=== PATIENT | female | born 1940 | race Caucasian/White ===

== ENCOUNTER 2016-11-01 17:16 | Inpatient (IN) ==
[2016-11-01] MEDS ORDERED: 0.9 % Sodium Chloride 500 ML IV ONE (17:37)
[2016-11-01] MEDS ORDERED: *HR* Morphine 2 MG/ML SYRINGE IV ONE (17:37)
[2016-11-01 17:45] LABS: Basophils % 0.2 %; Hematocrit 35.2 % (35.3-44.9); Hemoglobin 10.8 g/dL (11.5-15.4); Immature Granulocytes % 0.2 % (0-4); Lymphocytes # 0.9 K/mcL (0.6-4.6); Lymphocytes % 11.3 %; Mean Corpuscular HGB Conc 30.7 g/dL (31.6-35.5); Mean Corpuscular Volume 81.5 fL (83.0-100.0); Mean Platelet Volume 9.7 fL (9.4-12.4); Monocytes # 0.4 K/mcL (0.0-1.3); Neutrophils # 6.8 K/mcL (1.6-8.9); Platelet Count 183 K/mcL (140-400); Red Blood Count 4.32 M/mcL (3.82-4.97); Red Cell Distribution Width 15.9 % (11.5-14.5); Segmented Neutrophils % 83.3 %
[2016-11-01 17:49] LABS: Prothrombin Time 11.2 Seconds (9.4-12.1)
[2016-11-01 17:52] LABS: Activated Partial Thrombo Time 30.9 Seconds (26.0-36.0)
[2016-11-01 18:00] LABS: Alanine Aminotransferase 19 Units/L (0-55); Albumin 3.4 g/dL (3.5-5.0); Albumin/Globulin Ratio 1.2 (1.1-2.2); Alkaline Phosphatase 126 Units/L (38-126); Aspartate Amino Transferase 22 Units/L (5-34); BUN/Creatinine Ratio 21 (6-26); Bilirubin,Total 0.4 mg/dL (0.2-1.2); Blood Urea Nitrogen 16 mg/dL (7-20); Calcium 8.4 mg/dL (8.6-10.8); Carbon Dioxide 18 mEq/L (19-29); Chloride 107 mEq/L (98-109); Globulin 2.8 g/dL (2.4-3.5); Glucose 103 mg/dL (70-99); Osmolality,Calculated 285 (280-300); Potassium 4.3 mEq/L (3.5-4.5); Sodium 137 mEq/L (136-145); Total Protein 6.2 g/dL (6.0-8.3); eGFR For African Americans > 60 (> 60); eGFR For Non-African Americans > 60 (> 60)
--- NOTE | 2016-11-01 18:28 | Emergency Department Note ---
Disposition Clinical Impression: Closed left hip fracture Qualifiers: Encounter type: initial encounter Qualified Code(s): S72.002A - Fracture of unspecified part of neck of left femur, initial encounter for closed fracture Disposition: Admitted As Inpatient Condition: Good Referrals: King Winter MD [Primary Care Provider] - Forms: ED Satisfaction Letter Fall HPI - General Chief Complaint: ED Fall Stated Complaint: Fall / Possible Hip Fx Time Seen by Provider: 11/01/16 17:21 Source: patient Nursing Notes Reviewed: Yes Vital Signs Reviewed: Yes - History of Present Illness HPI Narrative: Patient presents with complaint of left hip pain status post fall. Patient states she was in kitchen had a slip and fall. Patient states injury happened last night. She had been using a walker to get around but comes in today because of increased pain. Of note patient had a hip fracture August 2015 and required intervention. Patient denies numbness and tingling this complains of pain. Patient denies any other areas of injury. Patient denies shortness of breath or cough. Patient denies dizziness associated. - Related Data Home Medications Medication Instructions Recorded Confirmed Fluconazole [Diflucan] 150 mg PO QWEEK 09/03/15 09/03/15 Gabapentin [Neurontin] 100 mg PO QAM 09/03/15 09/03/15 Gabapentin [Neurontin] 300 mg PO HS 09/03/15 09/03/15 Imodium 6 mg PO TID 09/03/15 09/03/15 Previous Rx's Medication Instructions Recorded Aspirin Enteric Coated [Aspirin EC] 325 mg PO BID #60 tablet. 09/04/15 Hydrocodone/Acetaminophen [[place] 1 - 2 tab PO Q4H PRN #90 tab 09/04/15 5-325 Tablet] Alprazolam [Xanax 0.5 MG Tablet] 0.5 mg PO BID 30 Days 09/06/15 FLUoxetine HCl [Prozac] 20 mg PO HS 30 Days 09/06/15 FLUoxetine HCl [Prozac] 40 mg PO QAM 30 Days 09/06/15 Primidone [Mysoline] 50 mg PO BID 30 Days 09/06/15 Ropinirole HCl [Requip] 2 - 4 mg PO DAILY PRN #30 tablet 09/06/15 Ropinirole [Requip] 3 - 6 mg PO HS #45 tablet 09/06/15 Allergies Allergy/AdvReac Type Severity Reaction Status Date / Time No Known Allergies Allergy Verified 09/03/15 16:21 All systems ED: reviewed and negative except as stated. Fall PMH - Past Medical History Medical history: Reports: other Surgical history: Reports: knee replacement Psychiatric history: Reports: anxiety, depression - Social History Smoking Status: Never smoker Alcohol use: Reports: none Drug use: Reports: none Physical Exam - General Limitations: no limitations General appearance: alert - Head Head exam: atraumatic, normocephalic, normal inspection - Eye Eye exam: Present: normal appearance, PERRL, EOMI - ENT ENT exam: normal exam, normal oropharynx, mucous membranes moist - Neck Neck exam: Present: normal inspection, full ROM, trachea midline - Chest Chest inspection: Present: normal inspection, symmetric chest wall rise - Respiratory Respiratory exam: Present: normal lung sounds bilaterally - Cardiovascular Cardiovascular exam: Present: regular rate, normal rhythm, normal heart sounds - Abdominal Exam Abdominal exam: Present: soft, Non-Tender. Absent: tenderness, distention, guarding, rebound, rigidity - Extremities Exam Extremities exam: Present: tenderness (Left lateral hip tenderness to palpation. Range of motion limited secondary to pain) - Back Exam Back exam: Present: normal inspection, full ROM. Absent: tenderness - Neurological Exam Neurological exam: Present: alert, oriented X3 - Psychiatric Psychiatric exam: Present: normal affect, normal mood - Skin Skin exam: Present: warm, dry, intact, normal color Course - Consultations Consultation #1: Dr Silva Vital Signs Temperature 99.7 F H 11/01/16 17:18 Pulse Rate 82 11/01/16 17:18 Respiratory Rate 16 11/01/16 17:18 Blood Pressure 163/72 11/01/16 17:18 O2 Sat by Pulse Oximetry 97 11/01/16 17:18 Temperature 99.7 F H 11/01/16 17:18 Pulse Rate 82 11/01/16 17:18 Respiratory Rate 16 11/01/16 17:18 Blood Pressure 163/72 11/01/16 17:18 O2 Sat by Pulse Oximetry 97 11/01/16 17:18 Oxygen Delivery Oxygen Delivery Room Air Fall - Differential Diagnosis Likely: syncope, seizure - Lab Data Lab results reviewed: Yes I reviewed the patient's lab results. Result diagrams: 11/01/16 17:34 11/01/16 17:34 Lab Results 11/01/16 11/01/16 11/01/16 Range/Units 17:34 17:34 17:34 WBC 8.1 (4.3-11.1) K/mcL RBC 4.32 (3.82-4.97) M/mcL Hgb 10.8 L (11.5-15.4) g/dL Hct 35.2 L (35.3-44.9) % MCV 81.5 L (83.0-100.0) fL MCH 25.0 L (28.0-33.3) pg MCHC 30.7 L (31.6-35.5) g/dL RDW 15.9 H (11.5-14.5) % Plt Count 183 (140-400) K/mcL MPV 9.7 (9.4-12.4) fL Immature Gran % 0.2 (0-4) % Seg Neutrophils % 83.3 % Lymphocytes % 11.3 % Monocytes % 5.0 % Eosinophils % 0.0 % Basophils % 0.2 % Neutrophils # 6.8 (1.6-8.9) K/mcL Lymphocytes # 0.9 (0.6-4.6) K/mcL Monocytes # 0.4 (0.0-1.3) K/mcL Eosinophils # 0.0 (0.0-0.6) K/mcL Basophils # 0.0 (0.0-0.2) K/mcL PT 11.2 (9.4-12.1) Seconds INR 1.0 APTT 30.9 (26.0-36.0) Seconds Sodium 137 (136-145) mEq/L Potassium 4.3 (3.5-4.5) mEq/L Chloride 107 (98-109) mEq/L Carbon Dioxide 18 L (19-29) mEq/L BUN 16 (7-20) mg/dL Creatinine 0.78 (0.57-1.11) mg/dL Est GFR ( Amer) > 60 (> 60) Est GFR (Non-Af Amer) > 60 (> 60) BUN/Creatinine Ratio 21 (6-26) Glucose 103 H (70-99) mg/dL Calculated Osmolality 285 (280-300) Calcium 8.4 L (8.6-10.8) mg/dL Total Bilirubin 0.4 (0.2-1.2) mg/dL AST 22 (5-34) Units/L ALT 19 (0-55) Units/L Alkaline Phosphatase 126 (38-126) Units/L Troponin I (0-0.03) ng/mL Serum Total Protein 6.2 (6.0-8.3) g/dL Albumin 3.4 L (3.5-5.0) g/dL Globulin 2.8 (2.4-3.5) g/dL Albumin/Globulin Ratio 1.2 (1.1-2.2) 11/01/16 Range/Units 17:34 WBC (4.3-11.1) K/mcL RBC (3.82-4.97) M/mcL Hgb (11.5-15.4) g/dL Hct (35.3-44.9) % MCV (83.0-100.0) fL MCH (28.0-33.3) pg MCHC (31.6-35.5) g/dL RDW (11.5-14.5) % Plt Count (140-400) K/mcL MPV (9.4-12.4) fL Immature Gran % (0-4) % Seg Neutrophils % % Lymphocytes % % Monocytes % % Eosinophils % % Basophils % % Neutrophils # (1.6-8.9) K/mcL Lymphocytes # (0.6-4.6) K/mcL Monocytes # (0.0-1.3) K/mcL Eosinophils # (0.0-0.6) K/mcL Basophils # (0.0-0.2) K/mcL PT (9.4-12.1) Seconds INR APTT (26.0-36.0) Seconds Sodium (136-145) mEq/L Potassium (3.5-4.5) mEq/L Chloride (98-109) mEq/L Carbon Dioxide (19-29) mEq/L BUN (7-20) mg/dL Creatinine (0.57-1.11) mg/dL Est GFR ( Amer) (> 60) Est GFR (Non-Af Amer) (> 60) BUN/Creatinine Ratio (6-26) Glucose (70-99) mg/dL Calculated Osmolality (280-300) Calcium (8.6-10.8) mg/dL Total Bilirubin (0.2-1.2) mg/dL AST (5-34) Units/L ALT (0-55) Units/L Alkaline Phosphatase (38-126) Units/L Troponin I 0.00 (0-0.03) ng/mL Serum Total Protein (6.0-8.3) g/dL Albumin (3.5-5.0) g/dL Globulin (2.4-3.5) g/dL Albumin/Globulin Ratio (1.1-2.2) - Radiology Data Radiology results reviewed: Yes I reviewed the patient's radiology results. Chest X-Ray 11/01/16 17:24 IMPRESSION: No acute cardiopulmonary disease. Closed impacted nondisplaced left femoral subcapital fracture. Sequela of remote ORIF for right femoral subcapital fracture. D/ : / 11/01/2016 18:19:08 Ash Tyler MD / jacinta Interpreting Provider: Ash Tyler MD Hip X-Ray 11/01/16 17:25 IMPRESSION: No acute cardiopulmonary disease. Closed impacted nondisplaced left femoral subcapital fracture. Sequela of remote ORIF for right femoral subcapital fracture. D/ : / 11/01/2016 18:19:08 Ash Tyler MD / jacinta Interpreting Provider: Ash Tyler MD - EKG Data EKG results narrative: EKG is unchanged from previous EKG shows normal: sinus rhythm Rate: normal Rhythm: NSR
[2016-11-01] MEDS ORDERED: *HR* HYDROcodone/Acet 5/325 mg TABLET PO PRN (20:55)
[2016-11-01] MEDS ORDERED: *HR* HYDROmorphone (PF) 1 MG/ML SYRINGE IVP PRN (20:56)
--- NOTE | 2016-11-01 21:06 | Orthopedic Consult Note ---
Date of Encounter: 11/01/16 Time of Encounter: 21:02 History of Present Illness Chief complaint: Left hip pain HPI: Ms. 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 She presented to the emergency room where x-rays taken revealed evidence of a left hip fracture. She is admitted for further management of management. She does have a history of having sustained a right hip fracture in August 2015. She also has orthopedic history of bilateral total knee replacements. The complete history and physical data please refer to the completed portion of the medical record. Orthopedic examination reveals a pleasant 76 [place] in mild distress secondary to left hip pain. No obvious shortening or external rotation. I have not attempted to thoroughly examine the hip as she has a known hip fracture. X- rays are reviewed and reveals a minimally of varus aligned subcapital femoral neck fracture. There is evidence of a healed right subcapital femoral neck fracture with 3 cannulated hip screws present. Impression: Nondisplaced left femoral neck fracture Recommendation: Discussed with the patient that I think that the best option for her to be to proceed with a similar procedure she had on the right side. This would be a percutaneous annulated hip screw fixation. This would stabilize the fracture and hopefully allow her to heal the fracture uneventfully and time. She understands this is a relatively minor procedure in comparison to a much more involved hemiarthroplasty which would be the other surgical option. Patient had previously had successful right cannulated hip screw fixation and endured a short period of limited weightbearing without problems and she feels she is quite capable of doing this again. We discussed surgical procedure as well as the potential risks and complications including but not limited to bleeding infection blood clots nerve injury stiffness malunion nonunion and avascular necrosis of the hip. She understands and agrees and a signed informed consent for the surgery. We will schedule her for surgery tomorrow when operating time is available. Preoperative orders have been written. Thank you very much for allowing me to see and care for Mrs. Hopson. Sincerely , Valdez Silva,DO Past Med Surg Social Fam HX - Past Medical History Medical history: other Psychiatric history: anxiety, depression - Past Surgical History Surgical History: knee replacement - Social History Smoking Status: Never smoker Smokeless Tobacco Status: No Alcohol use: none Drug use: none Medications and Allergies Fluconazole [Diflucan] 150 mg PO QWEEK 09/03/15 [History] Gabapentin [Neurontin] 100 mg PO QAM 09/03/15 [History] Gabapentin [Neurontin] 300 mg PO HS 09/03/15 [History] Imodium 6 mg PO TID 09/03/15 [History] Alprazolam [Xanax 0.5 MG Tablet] 0.5 mg PO BID 30 Days 09/06/15 [Rx] FLUoxetine HCl [Prozac] 20 mg PO HS 30 Days 09/06/15 [Rx] FLUoxetine HCl [Prozac] 40 mg PO QAM 30 Days 09/06/15 [Rx] Primidone [Mysoline] 50 mg PO BID 30 Days 09/06/15 [Rx] Aspirin Enteric Coated [Aspirin EC] 325 mg PO BID PRN 11/01/16 [History] Hydrocodone/Acetaminophen [[place] 5-325 Tablet] 1 tab PO Q4H PRN 11/01/16 [ History] Ropinirole HCl [Requip] 2 mg PO DAILY PRN 11/01/16 [History] Ropinirole [Requip] 6 mg PO HS 11/01/16 [History] Allergies No Known Allergies Allergy (Verified 09/03/15 16:21) All Systems Reviewed: A 10-system review of systems was performed and is negative for pertinent findings except as documented above in the HPI. Physical Exam - Constitutional Vitals: Temp Pulse Resp BP Pulse Ox 98.5 F 82 15 151/78 94 L 11/01/16 20:26 11/01/16 20:26 11/01/16 20:26 11/01/16 20:26 11/01/16 20:26 Results - Labs Result Diagrams: 11/01/16 17:34 11/01/16 17:34 Labs: Abnormal lab results Hgb 10.8 g/dL (11.5-15.4) L 11/01/16 17:34 Hct 35.2 % (35.3-44.9) L 11/01/16 17:34 MCV 81.5 fL (83.0-100.0) L 11/01/16 17:34 MCH 25.0 pg (28.0-33.3) L 11/01/16 17:34 MCHC 30.7 g/dL (31.6-35.5) L 11/01/16 17:34 RDW 15.9 % (11.5-14.5) H 11/01/16 17:34 Carbon Dioxide 18 mEq/L (19-29) L 11/01/16 17:34 Glucose 103 mg/dL (70-99) H 11/01/16 17:34 Calcium 8.4 mg/dL (8.6-10.8) L 11/01/16 17:34 Albumin 3.4 g/dL (3.5-5.0) L 11/01/16 17:34 All other labs normal. Consult Discharge Plan - Plan Referrals: King Winter MD [Primary Care Provider] -
[2016-11-01] MEDS ORDERED: Acetaminophen 325 MG TABLET PO PRN (23:19)
[2016-11-01] MEDS ORDERED: *HR* OxyCODONE Immed Rel 5 MG TABLET PO PRN (23:19)
[2016-11-01] MEDS ORDERED: Ondansetron 4 MG/2 ML VIAL IVP PRN (23:19)
[2016-11-01] MEDS ORDERED: Pantoprazole 40 MG VIAL IVP STA (23:19)
[2016-11-01] MEDS ORDERED: Naloxone 0.4 MG/ML INJ IVP PRN (23:19)
[2016-11-01] MEDS ORDERED: 0.9 % Sodium Chloride 1,000 ML IVC SCH (23:30)
[2016-11-01] MEDS ORDERED: rOPINIRole 1 MG TABLET PO PRN (23:32)
--- NOTE | 2016-11-01 23:37 | Internal Med History&Physical ---
Date of Encounter: 11/01/16 Time of Encounter: 23:00 Assessment and Plan (1) Multiple falls Current visit: Yes Status: Acute . (2) Closed subcapital fracture of left femur Current visit: Yes Status: Acute . Qualifiers: Encounter type: initial encounter Qualified Code(s): S72.012A - Unspecified intracapsular fracture of left femur, initial encounter for closed fracture (3) Metabolic acidosis Current visit: Yes Status: Acute . (4) Hypoalbuminemia due to protein-calorie malnutrition Current visit: Yes Status: Chronic . (5) Hypocalcemia Current visit: Yes Status: Acute . (6) Iron deficiency Current visit: Yes Status: Acute . (7) Microcytic hypochromic anemia Current visit: Yes Status: Acute . (8) Fever Current visit: Yes Status: Acute . Qualifiers: Fever type: unspecified Qualified Code(s): R50.9 - Fever, unspecified (9) Reactive hypertension Current visit: Yes Status: Acute . (10) Essential tremor Current visit: Yes Status: Chronic . (11) Irritable bowel syndrome (IBS) Current visit: Yes Status: Chronic . Qualifiers: Irritable bowel syndrome type: with diarrhea Qualified Code(s): K58.0 - Irritable bowel syndrome with diarrhea (12) Anxiety associated with depression Current visit: Yes Status: Chronic . (13) Osteoarthritis involving multiple joints on both sides of body Current visit: Yes Status: Chronic . (14) Degenerative disc disease Current visit: Yes Status: Chronic . Qualifiers: Spinal region: lumbar Qualified Code(s): M51.36 - Other intervertebral disc degeneration, lumbar region (15) Osteoporosis Current visit: Yes Status: Chronic . (16) Left bundle branch block (LBBB) on electrocardiogram Current visit: Yes Status: Chronic . (17) Diastolic heart failure of unknown etiology Current visit: Yes Status: Chronic . (18) Restless leg syndrome Current visit: Yes Status: Chronic . Internal Medicine - H&P: HPI Chief complaint: Fall with left hip injury. Admitted From: Emergency Dept Plans for Post Hospital Care: Home History of present illness: Ms. Hopson is a 76 year old female with history significant of frequent mechanical falls, osteoarthritis, osteopenia, degenerative disc disease lumbar spine, frequent yeast infections, essential tremor, irritable bowel syndrome with diarrhea, restless leg syndrome, left bundle-branch block-left axis deviation age indeterminate, diastolic heart failure/LVEF 60-65%, generalized anxiety disorder-depression/?bipolar, nonsmoker The patient was visited and interviewed and examined. The patient presents with complaint of left hip plain status post mechanical fall. She is admitted to [facility] via the Emergency Department for further assessment and disposition. She had been standing in her kitchen and simply slipped and fell. This occurring the night before her ER presentation. She had been using a walker to get around on her fall presented that due to increasing pain and weightbearing and addressed. The patient carries a history of multiple falls. She hss also sustained musculoskeletal injuries requiring surgical intervention as consequence of her falls. The last orthopedic surgical intervention occurring in August 2015 for a right hip fracture. She denied any provocation for fall. Denied any numbness tingling or diminished use of extremities weakness slurring of speech patient deficit. Denied any seizure-like event with biting of tongue or bowel or bladder dysfunction. Denied any shortness of breath chest pain dizziness syncopal complaints. Denied any other injuries. Her compliance with her currently scheduled medications without indiscretions. Findings in the ED: Temperature 99.7 pulse 82 respirations 16 BP 163/72. O2 saturation 97% room air. WBC 8.1 hemoglobin 10.8 MCV 81.5 MCH 25. RDW 15.9. Platelets 183,000. Differential normal. PT 11.2 INR 1 PTT 30.9. Metabolic panel normal except carbon dioxide 18. Glucose 103 osmolality 285. Calcium 8.4. Albumin 3.4 total 6.2. BUN 16 creatinine 0.78. Troponin 0.00. X-ray studies of chest and hip demonstrated no acute cardiopulmonary disease. Closed impacted nondisplaced left femoral subcapital fracture noted. Sequela of remote ORIF for right femoral subcapital fracture. Degenerative changes in the lower lumbar spine evident. Bones are osteopenic. EKG demonstrates normal sinus rhythm with no acute ischemic changes. Left bundle branch block with left axis deviation. Age-indeterminate inferior wall injury. Age-indeterminate anterior wall injury. Nonspecific ST-T wave changes. Preliminary impression suggests unprovoked mechanical fall with associated musculoskeletal trauma. Acute left nondisplaced subcapital femoral fracture evident. Screening studies are otherwise benign. Given presenting concerns, clinical findings advanced age, frailty and comorbidities she is at risk for further acute clinical decline and morbidity in this setting. Workup and treatment will proceed comprehensively. Cumulative laboratory and radiographic data base was reviewed, considered and discussed. Pertinent ancillary medical records including ECW and PCI documentation was reviewed and considered. Given the patient's presenting concerns, past medical history, clinical findings and symptoms, she is admitted at this time will undergo further evaluation and disposition. Orders were written as per the computerized physician order schedule clerk system.......................................................................... .................... Consultative opinions will be sought as clinical circumstances justify. Initial consultative opinion requested of orthopedic surgery. Pain management needs will be addressed. Laboratory and radiographic data base will be updated as appropriate. Studies include: PT/INR, APTT, CPK, cardiac injury panel, BNP, metabolic and hematologic panel, magnesium, phosphorus, ionized calcium, thyroid panel, lipid profile, A1c, C-peptide, CRP ,sedimentation rate, UA, B12, folate, vitamin D panel, blood gas, lactic acid, serologies, etc. Precautions: Aspiration, fall, delirium protocol/surveillance initiated. Telemetry with continuous hemodynamic monitoring and pulse oximetry initiated. Orthostatic vital signs. Empiric antibiotic coverage: pending culture data. Special studies: CT chest, chest x-ray, hip/pelvis x-rays, telemetry, EKG, limited echocardiogram. Pulmonary toilet: Incentive spirometry. Aerosol bronchodilator, mucolytic, antitussivePRN. Supplemental oxygen. Corticosteroid therapyPRN. CPAP/BiPAP supplemental oxygen deliveryPRN. Aerosol Mucomyst therapyPRN. Fluid and electrolyte repletion efforts will proceed. Careful attention to fluid balance and renal recovery will be emphasized. Avoidance of nephrotoxic exposure and adverse drug drug interaction in the setting of impaired renal function will be monitored closely. Acute coronary syndrome protocols/surveillance initiated. DVT and PUD prophylaxis initiated: PPI therapy, intermittent pneumatic cuffs/ TEDs. Subcutaneous heparin/Lovenox. Early ambulation will be encouraged. Immunization updates recommended. Influenza and pneumococcal vaccinations as part of ongoing preventative healthcare recommendations strongly recommended. Smoking cessation counseling briefly addressed. Patient is a nonsmoker. Advanced care directive discussion briefly addressed. Patient does not declare any healthcare restrictions at this time. Cardiovascular risk appraisal and cardiovascular risk reduction efforts will be emphasized. Physical and occupational therapy consulted to evaluate/assess patient's functional capacity and progress mobility as her circumstances permit. Nutrition/dietary education counseling may be considered as circumstances justify. Outpatient medication schedules will be reviewed, confirmed and facilitated as appropriate. Reconciliation of home treatments including adjustments, substitutions and reintroduction into the treatment regimen will address necessary maintenance therapies for chronic pre-existing medical conditions. Plan of care has been reviewed and discussed in detail with the patient. Questions addressed. Hospital course will depend upon clinical findings, treatment response and potential consultative interventions. Patient is at risk for further acute clinical decline and morbidity due to her advanced age, chief complaints, findings and comorbidities. Condition is serious. Prognosis is cautiously optimistic. CODE STATUS is full. Past Med Surg Social Fam HX - Past Medical History Source: old records reviewed Medical history: arthritis, cardiomyopathy (Echocardiogram April 2015: LVEF 60- 65%. Mild left ventricular diastolic dysfunction. No significant valvular dysfunction. Borderline elevated pulmonary hypertension. Mildly calcified aortic valve leaflets. No evidence of PFO by color Doppler. Pericardium normal. RVSP 36 mmHg. Estimated pulmonary pressure 3-5 mmHg. Trace pulmonic regurgitation. Basal sigmoid septum. Sinus rhythm with a bundle branch block EKG with PVCs. EKG #2015 sinus rhythm 77 bpm. Market that left axis deviation. Q waves in lead 3 and aVF. Left bundle branch block. Poor progression V1 to V2 V3 and V4 transition V5 nonspecific ST wave changes.), CHF (Diastolic dysfunction. LVEF 60-65%. Borderline pulmonary hypertension.), osteoporosis, other (Restless leg syndrome. Irritable bowel syndrome; diarrhea. Essential tremor.) Psychiatric history: anxiety, depression, other - Past Surgical History Surgical History: hip replacement (Right hip pinning or seizure.), knee replacement (Bilateral total knee arthroplasties.), orthopedic, other (He will have a reduction internal fixation.), other (Pyloroplasty. Ovarian cyst ectopy. ) - Social History Smoking Status: Never smoker Smokeless Tobacco Status: No Alcohol use: none Drug use: none Current living situation: With Family Activity Level: Independent ambulation, Mostly sedentary Recent Out of Country Travel Within the Last 8 Weeks: No Exposure or Possible Exposure to Illness During Travel: No Internal Medicine - H&P: Meds Fluconazole [Diflucan] 150 mg PO QWEEK 09/03/15 [History] Gabapentin [Neurontin] 100 mg PO QAM 09/03/15 [History] Gabapentin [Neurontin] 300 mg PO HS 09/03/15 [History] Imodium 6 mg PO TID 09/03/15 [History] Alprazolam [Xanax 0.5 MG Tablet] 0.5 mg PO BID 30 Days 09/06/15 [Rx] FLUoxetine HCl [Prozac] 20 mg PO HS 30 Days 09/06/15 [Rx] FLUoxetine HCl [Prozac] 40 mg PO QAM 30 Days 09/06/15 [Rx] Primidone [Mysoline] 50 mg PO BID 30 Days 09/06/15 [Rx] Aspirin Enteric Coated [Aspirin EC] 325 mg PO BID PRN 11/01/16 [History] Hydrocodone/Acetaminophen [Superior 5-325 Tablet] 1 tab PO Q4H PRN 11/01/16 [ History] Ropinirole HCl [Requip] 2 mg PO DAILY PRN 11/01/16 [History] Ropinirole [Requip] 6 mg PO HS 11/01/16 [History] Allergies No Known Allergies Allergy (Verified 09/03/15 16:21) All Systems PM: A 10-system review of systems was performed and is negative for pertinent findings except as documented above in the HPI. - Constitutional Constitutional: falls, malaise, no chills, no fever(s), no night sweats - EENT Eyes: as per HPI, no change in vision, no discharge, no pain, no photophobia Ears: as per HPI, no ear discharge, no ear pain, no tinnitus Nose, mouth and throat: as per HPI, no dysphagia, no nasal discharge, no neck pain, no sore throat - Cardiovascular Cardiovascular ROS IM: as per HPI, no chest pain, no diaphoresis, no dyspnea, no lightheadedness, no palpitations, no syncope - Respiratory Respiratory: as per HPI, no cough, no dyspnea, no wheezing, no excessive phlegm production - Gastrointestinal Gastrointestinal: as per HPI, no abdominal pain, no diarrhea, no hematemesis, no hematochezia, no melena, no nausea, no vomiting - Genitourinary Genitourinary: as per HPI, no change in urinary stream, no dysuria, no flank pain, no hematuria - Musculoskeletal Musculoskeletal ROS IM: as per HPI, no numbness, no tingling - Integumentary Integumentary IM: as per HPI, no rash, no unusual bruising - Neurological Neurological ROS: as per HPI, frequent falls, no confusion, no convulsions, no focal weakness, no numbness, no tingling, no tremor(s) - Psychiatric Psychiatric: as per HPI - Endocrine Endocrine IM: as per HPI - Hematologic/Lymphatic Hematologic/Lymphatic: as per HPI, no easy bruising - Allergic/Immunologic Allergic/Immunologic: as per HPI - Constitutional Vitals: Temp Pulse Resp BP Pulse Ox 98.5 F 82 15 151/78 94 L 11/01/16 20:26 11/01/16 20:26 11/01/16 20:26 11/01/16 20:26 11/01/16 20:26 Internal Med - H&P Results - Labs CBC & Chem 7: 11/02/16 00:13 11/02/16 00:13 - Impressions Vital Signs Temp Pulse Resp BP Pulse Ox 11/01/16 20:26 98.5 F 82 15 151/78 94 L 11/01/16 18:58 14 136/62 11/01/16 17:18 99.7 F H 82 16 163/72 97 Intake and Output 11/01/16 11/01/16 11/01/16 07:59 15:59 23:59 Intake Total 100 / 100 Output Total 700 / 700 Balance -600 / -600 Intake: Oral 100 / 100 Output: Urine 700 / 700 Other: Weight 60.781 kg Patient Weight 11/01/16 23:59 Weight 60.781 kg Short CBC 11/01/16 Range/Units 17:34 WBC 8.1 (4.3-11.1) K/mcL Hgb 10.8 L (11.5-15.4) g/dL Hct 35.2 L (35.3-44.9) % Plt Count 183 (140-400) K/mcL Neutrophils # 6.8 (1.6-8.9) K/mcL BMP 11/01/16 Range/Units 17:34 Sodium 137 (136-145) mEq/L Potassium 4.3 (3.5-4.5) mEq/L Chloride 107 (98-109) mEq/L Carbon Dioxide 18 L (19-29) mEq/L BUN 16 (7-20) mg/dL Creatinine 0.78 (0.57-1.11) mg/dL Glucose 103 H (70-99) mg/dL Calcium 8.4 L (8.6-10.8) mg/dL Cardiac Enzymes 11/01/16 Range/Units 17:34 Troponin I 0.00 (0-0.03) ng/mL Liver Function 11/01/16 Range/Units 17:34 Total Bilirubin 0.4 (0.2-1.2) mg/dL AST 22 (5-34) Units/L ALT 19 (0-55) Units/L Alkaline Phosphatase 126 (38-126) Units/L Albumin 3.4 L (3.5-5.0) g/dL Abnormal lab results Hgb 10.8 g/dL (11.5-15.4) L 11/01/16 17:34 Hct 35.2 % (35.3-44.9) L 11/01/16 17:34 MCV 81.5 fL (83.0-100.0) L 11/01/16 17:34 MCH 25.0 pg (28.0-33.3) L 11/01/16 17:34 MCHC 30.7 g/dL (31.6-35.5) L 11/01/16 17:34 RDW 15.9 % (11.5-14.5) H 11/01/16 17:34 Carbon Dioxide 18 mEq/L (19-29) L 11/01/16 17:34 Glucose 103 mg/dL (70-99) H 11/01/16 17:34 Calcium 8.4 mg/dL (8.6-10.8) L 11/01/16 17:34 Albumin 3.4 g/dL (3.5-5.0) L 11/01/16 17:34 Allergies Allergy/AdvReac Type Severity Reaction Status Date / Time No Known Allergies Allergy Verified 09/03/15 16:21 Laboratory Results WBC 8.1 K/mcL (4.3-11.1) 11/01/16 17:34 RBC 4.32 M/mcL (3.82-4.97) 11/01/16 17:34 Hgb 10.8 g/dL (11.5-15.4) L 11/01/16 17:34 Hct 35.2 % (35.3-44.9) L 11/01/16 17:34 MCV 81.5 fL (83.0-100.0) L 11/01/16 17:34 MCH 25.0 pg (28.0-33.3) L 11/01/16 17:34 MCHC 30.7 g/dL (31.6-35.5) L 11/01/16:34 RDW 15.9 % (11.5-14.5) H 11/01/16:34 Plt Count 183 K/mcL (140-400) 11/01/16:34 MPV 9.7 fL (9.4-12.4) 11/01/16:34 Immature Gran % 0.2 % (0-4) 11/01/16:34 Seg Neutrophils % 83.3 % 11/01/16:34 Lymphocytes % 11.3 % 11/01/16 17:34 Monocytes % 5.0 % 11/01/16 17:34 Eosinophils % 0.0 % 11/01/16 17:34 Basophils % 0.2 % 11/01/16:34 Neutrophils # 6.8 K/mcL (1.6-8.9) 11/01/16:34 Lymphocytes # 0.9 K/mcL (0.6-4.6) 11/01/16:34 Monocytes # 0.4 K/mcL (0.0-1.3) 11/01/16:34 Eosinophils # 0.0 K/mcL (0.0-0.6) 11/01/16:34 Basophils # 0.0 K/mcL (0.0-0.2) 11/01/16 17:34 PT 11.2 Seconds (9.4-12.1) 11/01/16 17:34 INR 1.0 11/01/16:34 APTT 30.9 Seconds (26.0-36.0) 11/01/16 17:34 Sodium 137 mEq/L (136-145) 11/01/16 17:34 Potassium 4.3 mEq/L (3.5-4.5) 11/01/16 17:34 Chloride 107 mEq/L (98-109) 11/01/16 17:34 Carbon Dioxide 18 mEq/L (19-29) L 11/01/16 17:34 BUN 16 mg/dL (7-20) 11/01/16 17:34 Creatinine 0.78 mg/dL (0.57-1.11) 11/01/16 17:34 Est GFR ( Amer) > 60 (> 60) 11/01/16 17:34 Est GFR (Non-Af Amer) > 60 (> 60) 11/01/16 17:34 BUN/Creatinine Ratio 21 (6-26) 11/01/16 17:34 Glucose 103 mg/dL (70-99) H 11/01/16 17:34 Calculated Osmolality 285 (280-300) 11/01/16 17:34 Calcium 8.4 mg/dL (8.6-10.8) L 11/01/16 17:34 Total Bilirubin 0.4 mg/dL (0.2-1.2) 11/01/16 17:34 AST 22 Units/L (5-34) 11/01/16 17:34 ALT 19 Units/L (0-55) 11/01/16 17:34 Alkaline Phosphatase 126 Units/L (38-126) 11/01/16 17:34 Troponin I 0.00 ng/mL (0-0.03) 11/01/16 17:34 Serum Total Protein 6.2 g/dL (6.0-8.3) 11/01/16 17:34 Albumin 3.4 g/dL (3.5-5.0) L 11/01/16 17:34 Globulin 2.8 g/dL (2.4-3.5) 11/01/16 17:34 Albumin/Globulin Ratio 1.2 (1.1-2.2) 11/01/16 17:34 Impressions Chest X-Ray 11/01/16 17:24 IMPRESSION: No acute cardiopulmonary disease. Closed impacted nondisplaced left femoral subcapital fracture. Sequela of remote ORIF for right femoral subcapital fracture. D/ / 11/01/2016 18:19:08 Ash Tyler MD / [email or web address] Interpreting Provider: Ash Tyler MD Hip X-Ray 11/01/16 17:25
[2016-11-02 00:23] LABS: VBG HCO3 23.7 mEq/L (21-27); VBG PH 7.38 pH Units (7.32-7.42)
[2016-11-02] MEDS: *HR* HYDROmorphone (PF) 1 MG/ML SYRINGE IVP PRN ×8 (00:25→20:50)
[2016-11-02 00:28] LABS: Hematocrit 29.4 % (35.3-44.9); Mean Corpuscular HGB Conc 30.6 g/dL (31.6-35.5); Mean Corpuscular Hemoglobin 25.2 pg (28.0-33.3); Mean Corpuscular Volume 82.4 fL (83.0-100.0); Mean Platelet Volume 9.5 fL (9.4-12.4); Platelet Count 149 K/mcL (140-400); Red Blood Count 3.57 M/mcL (3.82-4.97); Red Cell Distribution Width 15.9 % (11.5-14.5)
[2016-11-02 00:33] LABS: Magnesium 1.9 mg/dL (1.6-2.6); Phosphorous 3.2 mg/dL (2.3-4.7)
[2016-11-02 00:35] LABS: % Iron Saturation 25 % (15-50); Iron 90 mcg/dL (50-170); Transferrin 253 mg/dL (180-382)
[2016-11-02 00:36] LABS: BUN/Creatinine Ratio 18 (6-26); Blood Urea Nitrogen 15 mg/dL (7-20); Calcium 7.6 mg/dL (8.6-10.8); Carbon Dioxide 20 mEq/L (19-29); Chloride 108 mEq/L (98-109); Chol/HDL Ratio 1.8 (0-4.9); Cholesterol 177 mg/dL (< 200); Glucose 295 mg/dL (70-99); HDL Cholesterol 96 mg/dL (40-59); LDL Cholesterol,Calculated 72 mg/dL (0-99); Osmolality,Calculated 292 (280-300); Sodium 135 mEq/L (136-145); Triglycerides 44 mg/dL (< 150); eGFR For African Americans > 60 (> 60); eGFR For Non-African Americans > 60 (> 60)
[2016-11-02 00:41] LABS: Ionized Calcium 1.11 mmol/L (1.15-1.35)
[2016-11-02] MEDS ORDERED: Calcium Gluconate 1,000 MG in D5% in Water 100 ML IVPB ONE (03:26)
[2016-11-02] MEDS ORDERED: *HR* Enoxaparin 40 MG/0.4 ML SYRINGE SQ SCH (06:00)
[2016-11-02] MEDS ORDERED: Primidone 50 MG TABLET PO SCH (09:00)
[2016-11-02] MEDS ORDERED: ALPRAZolam 0.5 MG TABLET PO SCH (09:00)
[2016-11-02] MEDS ORDERED: Gabapentin 100 MG CAPSULE PO SCH (09:00)
[2016-11-02] MEDS ORDERED: FLUoxetine 20 MG CAPSULE PO SCH ×2 (09:00→21:00)
--- NOTE | 2016-11-02 09:07 | Internal Med Progress Note ---
<Ashish Cutler - Last Filed: 11/02/16 09:55> Date of Encounter: 11/02/16 Time of Encounter: 08:51 - Assessment and plan (1) Closed subcapital fracture of left femur Current Visit: Yes Status: Acute Assessment and plan: Fracture sustained from fall at home in kitchen the evening of 10/31/16 Orthopedic surgery planning for percutaneous annulated hip screw fixation Continue pain control with oxycodone / dilaudid PRN Qualifiers: Encounter type: initial encounter Qualified Code(s): S72.012A - Unspecified intracapsular fracture of left femur, initial encounter for closed fracture (2) Osteopenia Current Visit: Yes Status: Acute Assessment and plan: Osteopenia per most recent DEXA November 2013 She takes a vitamin D supplement at home but is unsure of dose Also takes daily multivitamin without separate calcium supplementation (3) Hypocalcemia Current Visit: Yes Status: Acute Assessment and plan: Mild hypocalcemia on admission (8.4 mg/dL) Decreased on this morning's labs (7.6), likely dilutional Patient asymptomatic, kidney function normal Magnesium level normal (1.9) (4) DVT prophylaxis Current Visit: No Status: Acute Assessment and plan: On Lovenox SQ IPCDs - Subjective Interval history: Patient seen and examined at bedside. She is lying in bed and in no apparent distress. She states that her hip pain ranges between 6-8/10. She denies chest pain, shortness of breath, or other new symptoms - Constitutional Vitals: Temp Pulse Resp BP Pulse Ox 98.9 F 84 18 139/61 93 L 11/02/16 07:42 11/02/16 07:42 11/02/16 07:42 11/02/16 07:42 11/02/16 06:41 - Head Head exam: Present: atraumatic, normocephalic - Eye Eye exam: Present: PERRL, conjuntiva pink, sclera anicteric Pupils: Present: PERRL - Neck Neck exam general surgery: Present: supple, trachea midline. Absent: lymphadenopathy - Respiratory Respiratory exam: Present: CTAB. Absent: accessory muscle use, rales, rhonchi, wheezes - Cardiovascular Cardiovascular exam: Present: RRR, +S1, +S2. Absent: diastolic murmur, gallop, rubs, systolic murmur - GI/Abdominal GI/Abdominal exam: Present: normal bowel sounds, soft, no peritoneal signs. Absent: distended, tenderness - Extremities Exam Extremities exam: Present: normal capillary refill. Absent: calf tenderness, cyanotic, pedal edema - Neurological Exam Neurological exam: Present: CN II-XII intact, oriented X3, no focal deficits. Absent: pronater drift, facial droop, speech deficit - Skin Skin exam: Present: dry, intact Internal Medicine: Result - Labs CBC & Chem 7: 11/02/16 00:13 11/02/16 00:13 Labs: Short CBC 11/02/16 Range/Units 00:13 WBC 5.6 (4.3-11.1) K/mcL Hgb 9.0 L D (11.5-15.4) g/dL Hct 29.4 L (35.3-44.9) % Plt Count 149 (140-400) K/mcL BMP 11/02/16 00:13 Sodium 135 L Potassium 4.0 Chloride 108 Carbon Dioxide 20 BUN 15 Creatinine 0.84 Glucose 295 H Calcium 7.6 L - ABG Interpretation ABG results: PT/INR, D-dimer PT 11.2 Seconds (9.4-12.1) 11/01/16 17:34 Consult Discharge Plan - Plan Referrals: King Winter MD [Primary Care Provider] - <Donovan Mercado H - Last Filed: 11/02/16 11:31> Date of Encounter: 11/02/16 - Subjective Interval history: Mentioned she probably fainted prior to braking her hip, has been feeling dizzy lately - Constitutional Vitals: Temp Pulse Resp BP Pulse Ox 98.9 F 84 18 139/61 94 L 11/02/16 07:42 11/02/16 07:42 11/02/16 07:42 11/02/16 07:42 11/02/16 07:42 General appearance: Present: A&O X 3 - Head Head exam: Present: atraumatic, normocephalic - Eye Eye exam: Present: PERRL, conjuntiva pink, sclera anicteric Pupils: Present: PERRL - Neck Neck exam general surgery: Present: supple, trachea midline. Absent: lymphadenopathy - Respiratory Respiratory exam: Present: CTAB. Absent: accessory muscle use, rales, rhonchi, wheezes - Cardiovascular Cardiovascular exam: Present: RRR, +S1, +S2. Absent: diastolic murmur, gallop, rubs, systolic murmur - GI/Abdominal GI/Abdominal exam: Present: normal bowel sounds, soft, no peritoneal signs. Absent: distended, tenderness - Extremities Exam Extremities exam: Present: warm, radial pulses palpable and symetrical. Absent : calf tenderness, cyanotic, pedal edema Additional comments: mild left hip swelling , no hematomas - Neurological Exam Neurological exam: Present: CN II-XII intact, oriented X3, no focal deficits. Absent: pronater drift, facial droop, speech deficit - Skin Skin exam: Present: dry, intact Internal Medicine: Result - Labs CBC & Chem 7: 11/02/16 00:13 11/02/16 00:13 Labs: Short CBC 11/02/16 Range/Units 00:13 WBC 5.6 (4.3-11.1) K/mcL Hgb 9.0 L D (11.5-15.4) g/dL Hct 29.4 L (35.3-44.9) % Plt Count 149 (140-400) K/mcL BMP 11/02/16 00:13 Sodium 135 L Potassium 4.0 Chloride 108 Carbon Dioxide 20 BUN 15 Creatinine 0.84 Glucose 295 H Calcium 7.6 L Urine 11/02/16 Range/Units 08:40 Urine Color Yellow (Yellow) Urine Clarity Clear (Clear) Urine pH 5.5 (5.0-8.0) pH Units Ur Specific [place] 1.023 (1.010-1.025) Urine Protein Trace (Neg-Trace) mg/dL Urine Glucose (UA) Normal (Normal) mg/dL - ABG Interpretation ABG results: PT/INR, D-dimer PT 11.2 Seconds (9.4-12.1) 11/01/16 17:34 - Attending Attestation syncopal episode, unclear etiology order CT head, echocardiogram , EKG may check orthostatics tomorrow Left hip Fracture, scheduled for surgery later today. Start Calcium supplements and vitamin D aftre surgery as she is NPO now I examined this patient and my medical decision-making was reviewed with the X [employer] EQUIPMENT REPAIRER/PA/Advanced Practice Nurse/Resident Physician. I agree with the documented findings, disposition and treatment plan as described except to the extent set forth below.
[2016-11-02 09:16] LABS: Bilirubin,Urine Negative (Negative); Blood,Urine Negative (Negative); Clarity,Urine Clear (Clear); Color,Urine Yellow (Yellow); Glucose,Urine (UA) Normal (Normal); Ketones,Urine Negative (Negative); Leukocyte Esterase,Urine Small (Negative); Nitrite,Urine Negative (Negative); PH,Urine 5.5 pH Units (5.0-8.0); Protein,Urine Trace mg/dL (Neg-Trace); Specific Gravity,Urine 1.023 (1.010-1.025); Urobilinogen,Urine Normal (Normal)
[2016-11-02 09:19] LABS: Bacteria,Urine None Seen per hpf (None-Few); Hyaline Casts,Urine None Seen per lpf (None-Few); RBC,Urine 0-3 per hpf (0-3); Squamous Epithelial Cell,Urine Many per lpf (None-Few); WBC,Urine 15-30 per hpf (0-3)
--- NOTE | 2016-11-02 17:31 | Anesthesia Evaluation PreOp ---
Date of Encounter: 11/02/16 Time of Encounter: 17:29 - Past History Planned Operation: l hip PP Cardiac History: Other (echo 04/27: ef 60, nl rv, rvsp 36) Pulmonary History: Denies Any Significant HX CRISIS COUNSELOR History: Syncope (pt has felt dizzy and has had numerous falls over the past year), Other (ddd, bipolar, anxiety, depression, rls) Other Medical History: Other (hypoalb, hypocalc) Anesthesia History: No Prior Anesthetic Complications, Past Anesthesia ( pyloroplasty, b tka, heel rif, ovarian cyst, r hip pp) Alcohol Use: none Drug use: none Medications and Allergies Fluconazole [Diflucan] 150 mg PO QWEEK 09/03/15 [History] Gabapentin [Neurontin] 100 mg PO QAM 09/03/15 [History] Gabapentin [Neurontin] 300 mg PO HS 09/03/15 [History] Imodium 6 mg PO TID 09/03/15 [History] Alprazolam [Xanax 0.5 MG Tablet] 0.5 mg PO BID 30 Days 09/06/15 [Rx] FLUoxetine HCl [Prozac] 20 mg PO HS 30 Days 09/06/15 [Rx] FLUoxetine HCl [Prozac] 40 mg PO QAM 30 Days 09/06/15 [Rx] Primidone [Mysoline] 50 mg PO BID 30 Days 09/06/15 [Rx] Aspirin Enteric Coated [Aspirin EC] 325 mg PO BID PRN 11/01/16 [History] Hydrocodone/Acetaminophen [[place] 5-325 Tablet] 1 tab PO Q4H PRN 11/01/16 [ History] Ropinirole HCl [Requip] 2 mg PO DAILY PRN 11/01/16 [History] Ropinirole [Requip] 6 mg PO HS 11/01/16 [History] Allergies No Known Allergies Allergy (Verified 09/03/15 16:21) - Meds/Allergy Pre-op Review Medications Reviewed: Yes Allergies Reviewed: Yes Beta Blockers on Current Med List: No Anesthesia Results - Labs 11/02/16 00:13 11/02/16 00:13 - Imaging EKG: report reviewed (sr, lad, lbbb) Additional studies: neg head CT Anesthesia Exam Vital Signs/O2 Sat/Glucose, Most Current Temp Pulse Resp BP Pulse Ox 11/02/16 15:41 98.8 F 82 16 155/76 93 L Height: 1.63 Weight: 61 NPO (# of Hours): >8 - HEENT Pupil (Motor): Pupils equal, EOMI Mallampati: II Teeth: Normal Oral Opening: Greater than 3 - CRISIS COUNSELOR LOC: Oriented CRISIS COUNSELOR Motor: Normal RUE, Normal LUE, Normal RLE, Normal LLE, Normal Face CRISIS COUNSELOR Sensory: Normal: RUE, LUE, RLE, LLE, Face - Cardiac Rhythm: Regular Murmur: None Carotid Bruit: No - Pulmonary Breath Sounds: bilateral Clear Respiratory Effort: Symmetrical Anesthesia Assess/Plan ASA Score: 3 Modified Danial Scale for Level of Consciousness: Cooperative, oriented, and tranquil Anesthetic Plan: General Monitoring Plan: Standard Monitors Recovery Plan: PACU
[2016-11-02] MEDS ORDERED: Ringers Solution, Lactated 1,000 ML IVC SCH ×2 (17:45→21:40)
[2016-11-02] MEDS ORDERED: *HR* Rocuronium Bromide 50 MG/5 ML VIAL ONE (17:46)
[2016-11-02] MEDS ORDERED: *HR* FentaNYL (PF) 100 MCG/2 ML VIAL ONE (17:46)
[2016-11-02] MEDS ORDERED: *HR* Propofol 200 MG/20 ML VIAL IVP ONE (17:46)
[2016-11-02] MEDS ORDERED: Ondansetron 4 MG/2 ML VIAL ONE (17:46)
[2016-11-02] MEDS ORDERED: *HR* Phenylephrine 10 MG/ML VIAL ONE (19:51)
--- NOTE | 2016-11-02 20:47 | Operative Note ---
Date of procedure: 11/02/16 Pre-op diagnosis: Left femoral neck fracture Post-op diagnosis: same Procedure: #1. Percutaneous cannulated screw fixation left hip #2. Fluoroscopic guidance for percutaneous screw fixation left hip Implants: 3 Synthes 7.3 mm cannulated hip screws Complications: None Anesthesia: PABLOA Surgeon: Valdez Silva Estimated blood loss (cc): 25 Specimen: None Condition: stable Disposition: PACU Procedure in Detail: Gross findings: Preoperative x-rays revealed a minimally impacted and displaced left femoral neck fracture in this 76-year-old woman. X-rays revealed previous cannulated screw fixation for a right femoral neck fracture with appropriate healing and no evidence of avascular necrosis. Intraoperative findings revealed a slightly rotated and valgus positioned subcapital type fracture. Fracture was reduced into excellent position and then stabilized with 3 cable hip screws with intraoperative fluoroscopy utilized to verify persistent fracture reduction and implants well-contained within the femoral head. Surgeon: Patient was taken the operating room and while in the hospital bed was administered general anesthesia. Patient was then transferred to the [facility] fracture table. Left lower extremity was placed in the longitudinal traction duong. Right lower extremity was positioned out of harm's way in the well leg duong. All pressure points well-padded. Fluoroscopy was now introduced and utilized to guide the initial reduction which was performed with a combination of adduction and mild rotation. Once fracture was reduced into excellent position left hip was prepped and draped in normal standard fashion for surgery. Approximately 3-4 cm incision was created over the left lateral hip area. Dissection was carried through the subcutaneous and his tissues down the level of the fascia dav with a small rent created. At this time the guide pins were placed into the femoral head. The top pin was placed just below the superior cortex of the neck and the inferior pin was placed just above the inferior cortex. The central guidepin was placed and ACL position between the other 2. The pins were placed in a divergent manner on the lateral views. Pins were noted to be well contained within the femoral head and in the appropriates level of the subchondral bone. Pins were measured and then the appropriate-sized 7.3 mm cannulated screws were driven over top of the guide pins. Pins were removed. Final fluoroscopic views were taken in multiple planes verifying excellent reduction of the fracture and position of the implants. Was now irrigated and closed. Subcutaneous tissue were closed with multiple inverted interrupted 2-0 undyed Vicryl. Skin was then approximated with a running septic stitch of 2-0 Quill followed by skin glue. When the glue had hardened, operative foam was applied. Patient was then transferred from the operating table to hospital bed. Patient was then awakened from anesthesia extubated in the operating room and then transferred to the post anesthesia care unit in stable and satisfactory condition. All sponge needle and instrument counts were correct. No specimens were sent for pathology.
[2016-11-02] MEDS ORDERED: ceFAZolin 2,000 MG in D5% in Water 100 ML IVPB ONE (20:54)
[2016-11-02] MEDS ORDERED: Gabapentin 300 MG CAPSULE PO SCH (21:00)
--- NOTE | 2016-11-02 21:13 | Anesthesia Evaluation Post Op ---
Date of Encounter: 11/02/16 Time of Encounter: 21:13 - Vital Signs Vital Signs: Vital Signs/O2 Sat/Glucose, Most Current Temp Pulse Resp BP Pulse Ox 11/02/16 21:10 98.1 F 77 20 131/62 99 11/02/16 21:00 98.1 F 75 20 133/56 99 11/02/16 20:50 98.1 F 78 20 172/76 98 11/02/16 20:40 78 20 182/85 99 11/02/16 20:30 81 20 160/70 98 11/02/16 20:20 98.8 F 85 24 174/61 100 - Lungs Lungs: Clear Ascult./Percussion - Airway Airway: Non-obstructed - Cardiovascular Regular Rate, Baseline Rhythm - Mental Status Mental Status: Alert & Oriented, Answers Appropriately - Pain Pain Scale: 5 Pain Scale used: Numeric (1 - 10) - Nausea Vomiting Nausea Vomiting: Not Present - Hydration Hydration: Tolerates oral liquids, Has not voided - Discharge PostOp Status: Transfer Patient to floor
[2016-11-02] MEDS ORDERED: Acetaminophen 325 MG TABLET PO PRN (21:40)
[2016-11-02] MEDS ORDERED: Naloxone 0.4 MG/ML INJ IVP PRN (21:40)
[2016-11-02] MEDS ORDERED: 0.9 % Sodium Chloride 1,000 ML IVC SCH (21:40)
[2016-11-02] MEDS ORDERED: Ondansetron 4 MG/2 ML VIAL IVP PRN (21:40)
[2016-11-02] MEDS ORDERED: rOPINIRole 1 MG TABLET PO PRN (21:40)
[2016-11-02] MEDS: *HR* OxyCODONE Immed Rel 5 MG TABLET PO PRN (22:43)
[2016-11-02] MEDS: ceFAZolin 2,000 MG in D5% in Water 100 ML IVPB SCH (23:35)
[2016-11-03] MEDS: *HR* HYDROmorphone (PF) 1 MG/ML SYRINGE IVP PRN ×4 (00:56→21:47)
[2016-11-03] MEDS: *HR* OxyCODONE Immed Rel 5 MG TABLET PO PRN ×2 (05:43→10:56)
[2016-11-03] MEDS: *HR* Enoxaparin 40 MG/0.4 ML SYRINGE SQ SCH (05:44)
--- NOTE | 2016-11-03 06:45 | Electrocardiograph Report ---
[place] [id number] Test Date: 2016-11-01 Pat Name: Jenna Hopson Department: 103 Room: [facility] Gender: F Bronc Breaker: : 1940 Requested By: Reggie Gutierrez Order Number: [id number] Reading MD: Rajeev Nuñez MD Measurements Intervals [place] Rate: 79 P: 58 SC: 176 QRS: -34 QRSD: 125 T: 105 QT: 425 QTc: 459 Interpretive Statements SINUS RHYTHM MARKED LEFT AXIS DEVIATION LEFT BUNDLE BRANCH BLOCK Electronically Signed On 11-03-2016 6:43:51 EST by Rajeev Nuñez MD
[2016-11-03 07:20] LABS: BUN/Creatinine Ratio 12 (6-26); Blood Urea Nitrogen 8 mg/dL (7-20); Calcium 8.1 mg/dL (8.6-10.8); Carbon Dioxide 24 mEq/L (19-29); Chloride 101 mEq/L (98-109); Glucose 145 mg/dL (70-99); Osmolality,Calculated 275 (280-300); Potassium 4.4 mEq/L (3.5-4.5); Sodium 132 mEq/L (136-145); eGFR For African Americans > 60 (> 60); eGFR For Non-African Americans > 60 (> 60)
[2016-11-03 07:21] LABS: Hematocrit 29.3 % (35.3-44.9); Hemoglobin 9.1 g/dL (11.5-15.4); Mean Corpuscular HGB Conc 31.1 g/dL (31.6-35.5); Mean Corpuscular Hemoglobin 25.6 pg (28.0-33.3); Mean Corpuscular Volume 82.5 fL (83.0-100.0); Mean Platelet Volume 10.8 fL (9.4-12.4); Platelet Count 152 K/mcL (140-400); Red Blood Count 3.55 M/mcL (3.82-4.97); Red Cell Distribution Width 15.8 % (11.5-14.5)
--- NOTE | 2016-11-03 08:41 | Internal Med Progress Note ---
<Ashish Cutler - Last Filed: 11/04/16 10:54> Date of Encounter: 11/03/16 Time of Encounter: 08:26 - Assessment and plan (1) Closed subcapital fracture of left femur Current Visit: Yes Status: Acute Assessment and plan: Fracture sustained from fall at home in kitchen the evening of 10/31/16 Orthopedic surgery performed percutaneous cannulated screw fixation of left hip yesterday Patient is stable Continue pain control with oxycodone / dilaudid PRN Qualifiers: Encounter type: initial encounter Qualified Code(s): S72.012A - Unspecified intracapsular fracture of left femur, initial encounter for closed fracture (2) Osteopenia Current Visit: Yes Status: Acute Assessment and plan: Osteopenia per most recent DEXA November 2013 She takes a vitamin D supplement at home but is unsure of dose Also takes daily multivitamin without separate calcium supplementation Qualifiers: Qualified Code(s): M85.80 - Other specified disorders of bone density and structure, unspecified site (3) Hypocalcemia Current Visit: Yes Status: Acute Assessment and plan: Calcium = 8.1 this morning (increased from 7.6 yesterday, ionized CA +1.11) Patient asymptomatic, kidney function normal Magnesium level normal (1.9) (4) DVT prophylaxis Current Visit: No Status: Acute Assessment and plan: On Lovenox SQ IPCDs - Subjective Interval history: Patient seen and examined at bedside. She is lying in bed and in no apparent distress. She had orthopedic surgery yesterday, fixation of subcapital femoral fracture. She states that her hip pain is tolerable and that the pain medications are helping. She denies chest pain, shortness of breath, or other new symptoms - Constitutional Vitals: Temp Pulse Resp BP Pulse Ox 99.2 F 74 18 129/78 93 L 11/03/16 06:25 11/03/16 06:25 11/03/16 06:25 11/03/16 06:25 11/03/16 06:25 General appearance: Present: A&O X 3 - Head Head exam: Present: atraumatic, normocephalic - Eye Eye exam: Present: PERRL, conjuntiva pink, sclera anicteric Pupils: Present: PERRL - Neck Neck exam general surgery: Present: supple, trachea midline. Absent: lymphadenopathy - Respiratory Respiratory exam: Present: CTAB. Absent: accessory muscle use, rales, rhonchi, wheezes - Cardiovascular Cardiovascular exam: Present: RRR, +S1, +S2. Absent: diastolic murmur, gallop, rubs, systolic murmur - GI/Abdominal GI/Abdominal exam: Present: normal bowel sounds, soft, no peritoneal signs. Absent: distended, tenderness - Extremities Exam Extremities exam: Present: warm, radial pulses palpable and symetrical. Absent : calf tenderness, cyanotic, pedal edema - Neurological Exam Neurological exam: Present: CN II-XII intact, oriented X3, no focal deficits. Absent: pronater drift, facial droop, speech deficit - Skin Skin exam: Present: dry, intact Internal Medicine: Result - Labs CBC & Chem 7: 11/04/16 06:29 11/04/16 06:29 Labs: Short CBC 11/03/16 Range/Units 06:31 WBC 5.8 (4.3-11.1) K/mcL Hgb 9.1 L (11.5-15.4) g/dL Hct 29.3 L (35.3-44.9) % Plt Count 152 (140-400) K/mcL BMP 11/03/16 06:31 Sodium 132 L Potassium 4.4 Chloride 101 Carbon Dioxide 24 BUN 8 Creatinine 0.69 Glucose 145 H Calcium 8.1 L Urine 11/02/16 Range/Units 08:40 Urine Color Yellow (Yellow) Urine Clarity Clear (Clear) Urine pH 5.5 (5.0-8.0) pH Units Ur Specific [place] 1.023 (1.010-1.025) Urine Protein Trace (Neg-Trace) mg/dL Urine Glucose (UA) Normal (Normal) mg/dL - ABG Interpretation ABG results: PT/INR, D-dimer PT 11.2 Seconds (9.4-12.1) 11/01/16 17:34 - Impressions Impressions Head CT 11/02/16 11:28 IMPRESSION: No acute traumatic intracranial abnormality D/ / Francesco Lopez MD / Francesco Lopez MD Interpreting Provider: Francesco Lopez MD Fluoroscopy 11/02/16 19:20 IMPRESSION: Intraprocedural fluoroscopic spot images as above. See separate procedure report for more information. D/ / 11/03/2016 06:35:05 Alex Busby MD / cinthia Interpreting Provider: Alex Busby MD - VTE Documentation of Mechanical Device: Venous foot pump, device Consult Discharge Plan - Plan Referrals: Valdez Silva DO [Non-Partnered Physician] - Raven Sierra MD [Partnered Physician] - 02/11/17 9:20 am King Winter MD [Primary Care Provider] - 01/15/17 1:30 pm Prescriptions: OxyCODONE Immed Rel [Roxicodone 5 MG] 5 mg PO Q4HR PRN #40 tablet PRN Reason: Moderate Pain (4-6) Docusate [Colace] 100 mg PO BID #20 capsule Folic Acid 1 mg PO DAILY #30 tablet <Alber Starks - Last Filed: 11/04/16 14:04> - Constitutional Vitals: Temp Pulse Resp BP Pulse Ox 97.9 F 70 16 117/72 95 11/04/16 10:45 11/04/16 10:45 11/04/16 10:45 11/04/16 10:45 11/04/16 10:45 Internal Medicine: Result - Labs CBC & Chem 7: 11/04/16 06:29 11/04/16 06:29 Labs: Short CBC 11/04/16 Range/Units 06:29 WBC 4.4 (4.3-11.1) K/mcL Hgb 9.3 L (11.5-15.4) g/dL Hct 30.3 L (35.3-44.9) % Plt Count 153 (140-400) K/mcL Neutrophils # 2.7 (1.6-8.9) K/mcL BMP 11/04/16 06:29 Sodium 135 L Potassium 3.8 Chloride 104 Carbon Dioxide 23 BUN 11 Creatinine 0.70 Glucose 191 H Calcium 8.1 L - ABG Interpretation ABG results: PT/INR, D-dimer PT 11.2 Seconds (9.4-12.1) 11/01/16 17:34 - Attending Attestation I examined this patient and my medical decision-making was reviewed with the EMERGENCY DEPARTMENT MANAGER/PA/Advanced Practice Nurse/Resident Physician. I agree with the documented findings, disposition and treatment plan as described except to the extent set forth below. D/C to ECF when stable and accepted. Likely tomorrow. Corrected calcium WNL.
[2016-11-03] MEDS: ceFAZolin 2,000 MG in D5% in Water 100 ML IVPB SCH (08:47)
[2016-11-03] MEDS: Primidone 50 MG TABLET PO SCH ×2 (08:47→21:46)
[2016-11-03] MEDS: Gabapentin 100 MG CAPSULE PO SCH (08:47)
[2016-11-03] MEDS: ALPRAZolam 0.5 MG TABLET PO SCH ×2 (08:47→21:47)
[2016-11-03] MEDS: FLUoxetine 20 MG CAPSULE PO SCH (08:47)
[2016-11-03 11:14] LABS: Folate 4.5 ng/mL (7.0-31.4)
--- NOTE | 2016-11-03 18:59 | Orthopedics Progress Note ---
Date of Encounter: 11/03/16 Time of Encounter: 18:57 Subjective Principal diagnosis: Left femoral neck fracture Interval history: 11/03/2016. She is having anticipated pain. She is postop day #1 from percutaneous fixation of a left femoral neck fracture. Vital signs are stable. She is afebrile. Dressing is dry with only a minimal spotting. Impression: Postop day #1 percutaneous screw fixation left femoral neck fracture Recommendation: Orthopedic status is stable. Patient can be discharged at any time. She is touchdown weightbearing only on the left lower extremity. As long as her dressing is intact she can now shower though I do not want her bathing or soaking. She should be on DVT prophylaxis. I would like see her back in the office in a few weeks' time. Objective Vital signs: Vital Signs Temp Pulse Resp BP Pulse Ox 11/03/16 14:00 99.4 F 87 18 107/64 94 L 11/03/16 13:04 77 18 122/70 93 L 11/03/16 11:04 99.0 F 77 18 122/70 93 L 11/03/16 06:25 99.2 F 74 18 129/78 93 L 11/03/16 03:34 99.2 F 74 14 120/70 98 11/03/16 00:20 97.3 F L 72 18 164/83 94 L 11/02/16 23:20 98.8 F 75 16 107/66 92 L 11/02/16 22:33 96 11/02/16 22:20 98.0 F 83 16 121/57 96 11/02/16 21:50 98.6 F 81 16 144/73 94 L 11/02/16 21:10 98.1 F 77 20 131/62 99 11/02/16 21:00 98.1 F 75 20 133/56 99 11/02/16 20:50 98.1 F 78 20 172/76 98 11/02/16 20:40 78 20 182/85 99 11/02/16 20:30 81 20 160/70 98 11/02/16 20:20 98.8 F 85 24 174/61 100 Intake and Output 11/03/16 11/03/16 11/03/16 07:59 15:59 23:59 Intake Total 100 / 100 0 / 0 100 / 100 Output Total 300 / 300 Balance -200 / -200 0 / 0 100 / 100 Intake: IV Fluids 100 / 100 Ancef 2,000 MG In 100 / 100 Dextrose 5% 100 ML @ 200 mls/hr IVPB Q8HR [facility] Rx#: [id number] Oral 0 / 0 100 / 100 Output: Urine 300 / 300 Other: Meal Dinner Percent of Meal Consumed 50% Blood Glucose* 121 203 201 - Labs CBC & BMP: 11/03/16 06:31 11/03/16 06:31 Labs: Abnormal lab results RBC 3.55 M/mcL (3.82-4.97) L 11/03/16 06:31 Hgb 9.1 g/dL (11.5-15.4) L 11/03/16 06:31 Hct 29.3 % (35.3-44.9) L 11/03/16 06:31 MCV 82.5 fL (83.0-100.0) L 11/03/16 06:31 MCH 25.6 pg (28.0-33.3) L 11/03/16 06:31 MCHC 31.1 g/dL (31.6-35.5) L 11/03/16 06:31 RDW 15.8 % (11.5-14.5) H 11/03/16 06:31 VBG pCO2 40 mmHg (41-51) L 11/02/16 00:13 VBG pO2 137 mmHg (25-40) H 11/02/16 00:13 Sodium 132 mEq/L (136-145) L 11/03/16 06:31 Glucose 145 mg/dL (70-99) H 11/03/16 06:31 POC Glucose 110 (58-89) H 11/02/16 19:01 Calculated Osmolality 275 (280-300) L 11/03/16 06:31 Calcium 8.1 mg/dL (8.6-10.8) L 11/03/16 06:31 Ionized Calcium 1.11 mmol/L (1.15-1.35) L 11/02/16 00:13 Albumin 3.4 g/dL (3.5-5.0) L 11/01/16 17:34 HDL Cholesterol 96 mg/dL (40-59) H 11/02/16 00:13 Vitamin B12 1097 pg/mL (213-816) H 11/03/16 06:31 25-OH Vitamin D Total 17 ng/mL (30-80) L 11/02/16 00:13 Folate 4.5 ng/mL (7.0-31.4) L 11/03/16 06:31 Ur Leukocyte Esterase Small (Negative) H 11/02/16 08:40 Urine Microscopic WBC 15-30 per hpf (0-3) H 11/02/16 08:40 Ur Squamous Epith Cells Many per lpf (None-Few) H 11/02/16 08:40 Ur Culture Indicated? YES (NO) A 11/02/16 08:40 - VTE Documentation of Mechanical Device: Venous foot pump, device Consult Discharge Plan - Plan Referrals: Raven Sierra MD [Partnered Physician] - 02/11/17 9:20 am King Winter MD [Primary Care Provider] - 01/15/17 1:30 pm
[2016-11-03] MEDS ORDERED: Gabapentin 300 MG CAPSULE PO SCH (21:00)
[2016-11-03] MEDS ORDERED: FLUoxetine 20 MG CAPSULE PO SCH (21:00)
[2016-11-04] MEDS: *HR* Enoxaparin 40 MG/0.4 ML SYRINGE SQ SCH (04:41)
--- NOTE | 2016-11-04 06:36 | Discharge Summary ---
<OmayraAshish león Matthew - Last Filed: 11/04/16 08:47> Date of Encounter: 11/04/16 Time of Encounter: 06:26 - Discharge Diagnosis (1) Closed subcapital fracture of left femur Priority: Primary Status: Acute Qualifiers: Encounter type: initial encounter Qualified Code(s): S72.012A - Unspecified intracapsular fracture of left femur, initial encounter for closed fracture (2) Osteopenia Priority: Secondary Status: Acute Qualifiers: Qualified Code(s): M85.80 - Other specified disorders of bone density and structure, unspecified site (3) Hypocalcemia Priority: Secondary Status: Acute (4) DVT prophylaxis Priority: Secondary Status: Acute - Discharge Medications Prescriptions: Docusate [Colace] 100 mg PO BID #20 capsule Folic Acid 1 mg PO DAILY #30 tablet OxyCODONE Immed Rel [Roxicodone 5 MG] 5 mg PO Q4HR PRN #40 tablet PRN Reason: Moderate Pain (4-6) Home Medications: Gabapentin [Neurontin] 100 mg PO QAM 09/03/15 [History] Gabapentin [Neurontin] 300 mg PO HS 09/03/15 [History] FLUoxetine HCl [Prozac] 20 mg PO HS 30 Days 09/06/15 [Rx] FLUoxetine HCl [Prozac] 40 mg PO QAM 30 Days 09/06/15 [Rx] Primidone [Mysoline] 50 mg PO BID 30 Days 09/06/15 [Rx] Aspirin Enteric Coated [Aspirin EC] 325 mg PO BID PRN 11/01/16 [History] Ropinirole [Requip] 6 mg PO HS 11/01/16 [History] Alprazolam [Xanax 0.5 MG Tablet] 0.5 mg PO BID PRN 11/02/16 [History] Memantine HCl [Namenda Xr] 28 mg PO DAILY 11/02/16 [History] Nystatin [Nystatin Suspension] 400,000 - 600,000 units PO QID 11/02/16 [History] [place] HCl 5 mg PO TID PRN 11/02/16 [History] Ropinirole HCl [Requip] 3 mg PO QAM 11/02/16 [History] Valacyclovir HCl [Valacyclovir] 1,000 mg PO BID 11/02/16 [History] Docusate [Colace] 100 mg PO BID #20 capsule 11/04/16 [Rx] Folic Acid 1 mg PO DAILY #30 tablet 11/04/16 [Rx] OxyCODONE Immed Rel [Roxicodone 5 MG] 5 mg PO Q4HR PRN #40 tablet 11/04/16 [Rx] Allergies/Adverse Reactions: Allergies No Known Allergies Allergy (Verified 09/03/15 16:21) Procedures/tests Complete & Pending: Procedures Performed prior 72 hours Category Date Time Status CT head/brain wo con [CT] Routine Cat Scan 11/02/16 11:28 Completed EKG [ECG 12 lead ECG] [ECG] Routine Y 11/02/16 11:31 Stop Req Date of admission: 11/01/16 18:45 Primary care physician: King Winter MD Consults: 11/01/16 23:26 Consult to Occupational Therapy [CONS] Routine Comment: Evaluate, develop and implement POC Consult to Physical Therapy [CONS] Routine Comment: Evaluate, develop and implement POC Consult to Home Economics Teacher [CONS] Routine Reason for SW Consult: DC planning Discharging clinician: Alber Starks Anticipated date of discharge: 11/04/16 - Patient Status Disposition: Transfer Inpatient Rehab Fac Condition: Fair Functional capacity at discharge: uses cane/walker Overall status at discharge: patient is progressing back to baseline - Discharge Instructions Follow Up With: Raven Sierra MD [Partnered Physician] - 02/11/17 9:20 am King Winter MD [Primary Care Provider] - 01/15/17 1:30 pm Valdez Silva DO [Non-Partnered Physician] - - Diet and Activity Activity: other (touchdown weightbearing only on the left lower extremity) Hospital course: Ms. Hopson is a 76 year old female old with past medical history significant for osteopenia putting despite DEXA scan in 2013, and with prior left hip fracture. Ms. Hopson awoke the evening of 10/31/16 to get something to drink from the kitchen and thinks she may have fainted. She developed left sided hip pain and presented to the emergency department the following evening and when she was found to have a left subcapital femoral hip fracture. Her prior hip fracture on the contralateral side was repaired by percutaneous screw fixation and orthopedics determined that she would be a good candidate for this procedure again on her left hip. Surgery was performed 11/02/16 without complications. The patient has been doing well postoperatively and has been cleared for discharge by orthopedics with instructions for touchdown weightbearing only on the left lower extremity. During her hospital stay a CT scan of the head was obtained due to possible syncope, this was negative for any acute intracranial abnormalities. Orthostatics were also obtained which were significant for a decrease in diastolic blood pressure by 18 mmHg from lying to sitting and an increase in heart rate of 34 bpm from lying to sitting. Patient is taking opioid medication for pain control while in the hospital but she is also on ropinirole at home which may both be contributing. Discussed with patient to discuss pros and cons of continuing medications with PCM. Also discussed importance of staying well hydrated and possibly liberalizing her sodium intake as hypertension does not seem to be an issue - Time Spent with Patient Total time spent providing and/or coordinating discharge services: Greater than 30 minutes - Constitutional Vitals: Temp Pulse Resp BP Pulse Ox 98.4 F 73 16 112/68 99 11/04/16 04:00 11/04/16 04:00 11/04/16 04:00 11/04/16 04:00 11/04/16 04:00 General appearance: Present: A&O X 3 - Head Head exam: Present: atraumatic, normocephalic - Eye Eye exam: Present: PERRL, conjuntiva pink, sclera anicteric Pupils: Present: PERRL - Neck Neck exam general surgery: Present: supple, trachea midline. Absent: lymphadenopathy - Respiratory Respiratory exam: Present: CTAB. Absent: accessory muscle use, rales, rhonchi, wheezes - Cardiovascular Cardiovascular exam: Present: RRR, +S1, +S2. Absent: diastolic murmur, gallop, rubs, systolic murmur - GI/Abdominal GI/Abdominal exam: Present: normal bowel sounds, soft, no peritoneal signs. Absent: distended, tenderness - Extremities Exam Extremities exam: Present: warm, radial pulses palpable and symetrical. Absent : calf tenderness, cyanotic, pedal edema - Neurological Exam Neurological exam: Present: CN II-XII intact, oriented X3, no focal deficits. Absent: pronater drift, facial droop, speech deficit - Skin Skin exam: Present: dry, intact - VTE Documentation of Mechanical Device: Venous foot pump, device <Alber Starks R - Last Filed: 11/04/16 14:05> Procedures/tests Complete & Pending: Procedures Performed prior 72 hours Category Date Time Status CT head/brain wo con [CT] Routine Cat Scan 11/02/16 11:28 Completed EKG [ECG 12 lead ECG] [ECG] Routine Y 11/02/16 11:31 Stop Req Date of admission: 11/01/16 18:45 Primary care physician: King Winter MD Consults: 11/01/16 23:26 Consult to Occupational Therapy [CONS] Routine Comment: Evaluate, develop and implement POC Consult to Physical Therapy [CONS] Routine Comment: Evaluate, develop and implement POC Consult to Home Economics Teacher [CONS] Routine Reason for SW Consult: DC planning Hospital course: Ms. Hopson is a 76 year old female - Time Spent with Patient Total time spent providing and/or coordinating discharge services: - Constitutional Vitals: Temp Pulse Resp BP Pulse Ox 97.9 F 70 16 117/72 95 11/04/16 10:45 11/04/16 10:45 11/04/16 10:45 11/04/16 10:45 11/04/16 10:45 - Attending Attestation I examined this patient and my medical decision-making was reviewed with the SENIOR PRODUCT INTEGRITY ENGINEER/PA/Advanced Practice Nurse/Resident Physician. I agree with the documented findings, disposition and treatment plan as described except to the extent set forth below. Michelle, for D/C to ECF today.
[2016-11-04 06:38] LABS: Basophils % 0.5 %; Hematocrit 30.3 % (35.3-44.9); Hemoglobin 9.3 g/dL (11.5-15.4); Immature Granulocytes % 0.2 % (0-4); Lymphocytes # 1.3 K/mcL (0.6-4.6); Lymphocytes % 29.1 %; Mean Corpuscular HGB Conc 30.7 g/dL (31.6-35.5); Mean Corpuscular Hemoglobin 25.5 pg (28.0-33.3); Mean Platelet Volume 10.3 fL (9.4-12.4); Monocytes # 0.3 K/mcL (0.0-1.3); Monocytes % 7.6 %; Neutrophils # 2.7 K/mcL (1.6-8.9); Platelet Count 153 K/mcL (140-400); Red Blood Count 3.65 M/mcL (3.82-4.97); Red Cell Distribution Width 15.9 % (11.5-14.5); Segmented Neutrophils % 62.6 %
[2016-11-04 06:50] LABS: BUN/Creatinine Ratio 16 (6-26); Blood Urea Nitrogen 11 mg/dL (7-20); Calcium 8.1 mg/dL (8.6-10.8); Carbon Dioxide 23 mEq/L (19-29); Chloride 104 mEq/L (98-109); Glucose 191 mg/dL (70-99); Osmolality,Calculated 285 (280-300); Potassium 3.8 mEq/L (3.5-4.5); Sodium 135 mEq/L (136-145); eGFR For African Americans > 60 (> 60); eGFR For Non-African Americans > 60 (> 60)
[2016-11-04 07:52] LABS: Hemoglobin A1C 6.2 %
--- NOTE | 2016-11-04 08:22 | Physician Discharge Referral ---
<OmayraAshish Matthew - Last Filed: 11/04/16 08:43> ExtendedCare Referral Info Transfer To: Extended Care Facility Provider in Charge after Transfer: PCP Institutional Level of Care: Skilled - Diagnosis (1) Closed subcapital fracture of left femur Priority: Primary Status: Acute (2) Osteopenia Priority: Secondary Status: Acute (3) Hypocalcemia Priority: Secondary Status: Acute (4) DVT prophylaxis Priority: Secondary Status: Acute Prognosis: Fair Aware of Diagnosis: Patient Aware of Prognosis: Patient - Transfer Medications Prescriptions: Docusate [Colace] 100 mg PO BID #20 capsule Folic Acid 1 mg PO DAILY #30 tablet OxyCODONE Immed Rel [Roxicodone 5 MG] 5 mg PO Q4HR PRN #40 tablet PRN Reason: Moderate Pain (4-6) Home Medications: Gabapentin [Neurontin] 100 mg PO QAM 09/03/15 [History] Gabapentin [Neurontin] 300 mg PO HS 09/03/15 [History] FLUoxetine HCl [Prozac] 20 mg PO HS 30 Days 09/06/15 [Rx] FLUoxetine HCl [Prozac] 40 mg PO QAM 30 Days 09/06/15 [Rx] Primidone [Mysoline] 50 mg PO BID 30 Days 09/06/15 [Rx] Aspirin Enteric Coated [Aspirin EC] 325 mg PO BID PRN 11/01/16 [History] Ropinirole [Requip] 6 mg PO HS 11/01/16 [History] Alprazolam [Xanax 0.5 MG Tablet] 0.5 mg PO BID PRN 11/02/16 [History] Memantine HCl [Namenda Xr] 28 mg PO DAILY 11/02/16 [History] Nystatin [Nystatin Suspension] 400,000 - 600,000 units PO QID 11/02/16 [History] Pilocarpine HCl 5 mg PO TID PRN 11/02/16 [History] Ropinirole HCl [Requip] 3 mg PO QAM 11/02/16 [History] Valacyclovir HCl [Valacyclovir] 1,000 mg PO BID 11/02/16 [History] Docusate [Colace] 100 mg PO BID #20 capsule 11/04/16 [Rx] Folic Acid 1 mg PO DAILY #30 tablet 11/04/16 [Rx] OxyCODONE Immed Rel [Roxicodone 5 MG] 5 mg PO Q4HR PRN #40 tablet 11/04/16 [Rx] Allergies/Adverse Reactions: Allergies No Known Allergies Allergy (Verified 09/03/15 16:21) - Respiratory Orders None Smoking Cessation: Non-smoker - Advance Directives Code Status: Full Code - Mobility Orders Other (Patient is touchdown weightbearing only on the left lower extremity. Other recommendations as per PT/OT) - Rehabiliation Orders Rehab Potential: Good Rehab Orders: Evaluation for Physical Therapy, Evaluation for Occupational Therapy - Diet Orders Regular CERTIFICATION: I certify that the transfer of the above named patient to an Extended Care Facility is necessary for the continuing treatment of the diagnosis listed. The above information is true and accurate reflection of patient's current condition. Confidential - Redisclosure prohibited without a patient's written consent. <Alber Starks - Last Filed: 11/04/16 14:05> - Respiratory Orders Smoking Cessation: Smoking cessation has been advised. For more information, call the [place] Tobacco Quit Line at 8-537-KNIR-NOW. CERTIFICATION: I certify that the transfer of the above named patient to an Extended Care Facility is necessary for the continuing treatment of the diagnosis listed. The above information is true and accurate reflection of patient's current condition. Confidential - Redisclosure prohibited without a patient's written consent.
[2016-11-04] MEDS: Gabapentin 100 MG CAPSULE PO SCH (08:44)
[2016-11-04] MEDS: ALPRAZolam 0.5 MG TABLET PO SCH (08:44)
[2016-11-04] MEDS: FLUoxetine 20 MG CAPSULE PO SCH (08:44)
[2016-11-04] MEDS: Primidone 50 MG TABLET PO SCH (08:44)
[2016-11-04] MEDS: *HR* HYDROmorphone (PF) 1 MG/ML SYRINGE IVP PRN (08:51)
[2016-11-04] MEDS ORDERED: Folic Acid 1 MG TABLET PO SCH (09:00)
[2016-11-04 14:38] VITALS: BP 134/73
[2016-11-04] MEDS: *HR* OxyCODONE Immed Rel 5 MG TABLET PO PRN (16:12)
--- NOTE | 2016-11-10 16:07 | Electrocardiograph Report ---
[place] [id number] Test Date: 2016-11-04 Pat Name: Jenna Hopson Department: 114 Room: [facility] Gender: F [employer] Attendant: : 1940 Requested By: Alber Starks Order Number: [id number] Reading MD: Ruperto Mccann Measurements Intervals [place] Rate: 68 P: -19 TN: 154 QRS: -33 QRSD: 125 T: 73 QT: 429 QTc: 446 Interpretive Statements SINUS RHYTHM MARKED LEFT AXIS DEVIATION LEFT BUNDLE BRANCH BLOCK Electronically Signed On 11-10-2016 16:05:58 EST by Ruperto Mccann
== END 2016-11-04 17:40 | DRG 481 ==
LOC: EMEROO 17:16 → 3NENU 18:45 → SUATTDRO 18:45 → 3NENU 19:35
PROVIDERS: ADMIT Registered Nurse; ATTEND Internal Medicine

== ENCOUNTER 2017-07-15 18:15 | Inpatient (IN) ==
[2017-07-15] MEDS ORDERED: *HR* FentaNYL (PF) 100 MCG/2 ML VIAL IVP ONE (18:25)
[2017-07-15] MEDS ORDERED: 0.9 % Sodium Chloride 1,000 ML IVC ONE (18:26)
--- NOTE | 2017-07-15 18:30 | Emergency Department Note ---
START Narrative - START START: I examined this patient and my medical decision-making was reviewed with the emergency medicine resident. I agree with the documented findings, disposition and treatment plan as described except to the extent set forth below. Patient seen with emergency medicine resident Dr. Dar Neely, Please see a copy of his note for details of the H&P, ED evaluation, management and disposition. I have independently evaluated the patient and confirmed appropriate portions of the history and physical exam. Briefly: A 77-year-old female who apparently had a mechanical fall , brought in by EMS for right shoulder pain. Patient is right-hand dominant. Patient suspected to have a possible fracture dislocation of the proximal right humerus. 2+ pulses she is neurologically intact to neurovascular compromise no head or neck pain or trauma rhythm strips per ems show concerning rhythms a possible bundle branch block ekg will be obtained here as well as x-rays and analgesia to control pain. disposition pending
--- NOTE | 2017-07-15 18:55 | Emergency Department Note ---
START Narrative - START START: 77 y/o female who had a mechanical fall onto her right shoulder. Did not hit head. Not on anticoagulants. Obvious deformity of right shoulder. N/V intact distally.
[2017-07-15] MEDS ORDERED: *HR* HYDROmorphone (PF) 1 MG/ML SYRINGE IVP ONE ×2 (19:05→21:04)
[2017-07-15] MEDS ORDERED: Ondansetron 4 MG/2 ML VIAL IVP ONE (19:13)
--- NOTE | 2017-07-15 19:15 | Emergency Department Note ---
Disposition Clinical Impression: Humerus fracture Qualifiers: Encounter type: initial encounter Humerus Location: shaft Fracture type: closed Fracture morphology: spiral Fracture alignment: displaced Laterality: right Qualified Code(s): S42.341A - Displaced spiral fracture of shaft of humerus, right arm, initial encounter for closed fracture Disposition: Admitted As Inpatient Condition: Good Referrals: King Winter MD [Primary Care Provider] - Forms: ED Satisfaction Letter Time of Disposition: 21:02 Fall HPI - General Chief Complaint: ED Extremity Injury, Upper Stated Complaint: fall/ right shoulder pain Time Seen by Provider: 07/15/17 18:21 Source: patient Limitations: no limitations Nursing Notes Reviewed: Yes Vital Signs Reviewed: Yes - History of Present Illness HPI Narrative: Patient presents to the ED after a fall. States she lost her balance, fell and hit her right shoulder. Signed out from the daytime team. Suspected right humerus fracture. Patient denies syncope. Awaiting family. - Related Data Home Medications Medication Instructions Recorded Confirmed ALPRAZolam [Xanax 0.5 MG Tablet] 0.5 mg PO BID 07/15/17 07/15/17 FLUoxetine HCl [Prozac] 20 mg PO QPM 07/15/17 07/15/17 FLUoxetine HCl [Prozac] 40 mg PO QAM 07/15/17 07/15/17 Gabapentin [Neurontin] 100 mg PO QAM 07/15/17 07/15/17 Gabapentin [Neurontin] 300 mg PO HS 07/15/17 07/15/17 Loperamide HCl [Imodium A-D] 6 mg PO TIDWM 07/15/17 07/15/17 Melatonin 20 mg PO HS 07/15/17 07/15/17 Primidone [Mysoline] 50 mg PO QPM 07/15/17 07/15/17 Primidone [Mysoline] 100 mg PO QAM 07/15/17 07/15/17 rOPINIRole [Requip] 3 mg PO QAM 07/15/17 07/15/17 rOPINIRole [Requip] 6 mg PO HS 07/15/17 07/15/17 Allergies Allergy/AdvReac Type Severity Reaction Status Date / Time No Known Allergies Allergy Verified 07/15/17 18:17 All systems ED: reviewed and negative except as stated. Constitutional: Denies: fever Cardiovascular: Denies: chest pain Respiratory: Denies: dyspnea Gastrointestinal: Denies: vomiting Musculoskeletal: Reports: as per HPI Neurological: Denies: headache Fall PMH - Past Medical History Medical history: Reports: arthritis, cardiomyopathy, CHF, osteoporosis, other Surgical history: Reports: hip replacement (Right hip pinning or seizure.), knee replacement (Bilateral total knee arthroplasties.), orthopedic, other (He will have a reduction internal fixation.), other (Pyloroplasty. Ovarian cyst ectopy.) Psychiatric history: Reports: anxiety, depression, other - Social History Smoking Status: Never smoker Alcohol use: Reports: none Drug use: Reports: none Physical Exam - General Limitations: no limitations General appearance: alert, other (In pain) - Head Head exam: atraumatic, normocephalic, normal inspection - Eye Eye exam: Present: normal appearance, PERRL, EOMI - Neck Neck exam: Present: normal inspection, full ROM, trachea midline. Absent: tenderness - Chest Chest inspection: Present: normal inspection, symmetric chest wall rise - Respiratory Respiratory exam: Present: normal lung sounds bilaterally - Cardiovascular Cardiovascular exam: Present: regular rate, normal rhythm, normal heart sounds - Abdominal Exam Abdominal exam: Present: soft, Non-Tender. Absent: tenderness, distention, guarding, rebound, rigidity - Extremities Exam Extremities exam: Present: normal capillary refill (Neurovascularly intact distally), other (Right midshaft/proximal humerus deformity. Bedside ultrasound revealed no shoulder dislocation) - Expanded Lower Extremity Exam Hip/Pelvis exam: Present: pelvis stable - Neurological Exam Neurological exam: Present: alert, oriented X3 - Psychiatric Psychiatric exam: Present: normal affect, normal mood - Skin Skin exam: Present: warm, dry, intact, normal color Course Course Narrative: Patient fell at home. Family states she may benefit syncopal episodes. We have added on labs. Overall she is doing well. She has a spiral mid to proximal shaft humerus fracture with bone with displacement and shortening. Neurovascular intact. Spoke with on-call orthopedic surgeon. Recommended admission and will consult for surgery in the morning. Vital Signs Temperature 97 F L 07/15/17 18:24 Pulse Rate 71 07/15/17 18:24 Respiratory Rate 24 07/15/17 18:24 Blood Pressure 183/73 07/15/17 18:24 O2 Sat by Pulse Oximetry 100 07/15/17 18:24 Temperature 97 F L 07/15/17 18:24 Pulse Rate 71 07/15/17 18:24 Respiratory Rate 24 07/15/17 18:24 Blood Pressure 183/73 07/15/17 18:24 O2 Sat by Pulse Oximetry 100 07/15/17 18:24 Oxygen Delivery Oxygen Delivery Room Air Fall - Lab Data Result diagrams: 07/15/17 19:33 07/15/17 19:33 Lab Results 07/15/17 07/15/17 07/15/17 Range/Units 19:33 19:33 19:34 WBC 7.8 (4.3-11.1) K/mcL RBC 3.66 L (3.82-4.97) M/mcL Hgb 8.7 L (11.5-15.4) g/dL Hct 28.0 L (35.3-44.9) % MCV 76.5 L (83.0-100.0) fL MCH 23.8 L (28.0-33.3) pg MCHC 31.1 L (31.6-35.5) g/dL RDW 16.8 H (11.5-14.5) % Plt Count 177 (140-400) K/mcL MPV 9.2 L (9.4-12.4) fL Immature Gran % 0.5 (0-4) % Seg Neutrophils % 75.4 % Lymphocytes % 17.1 % Monocytes % 6.0 % Eosinophils % 0.6 % Basophils % 0.4 % Neutrophils # 5.9 (1.6-8.9) K/mcL Lymphocytes # 1.3 (0.6-4.6) K/mcL Monocytes # 0.5 (0.0-1.3) K/mcL Eosinophils # 0.1 (0.0-0.6) K/mcL Basophils # 0.0 (0.0-0.2) K/mcL Sodium 137 (136-145) mEq/L Potassium 3.9 (3.5-4.5) mEq/L Chloride 108 (98-109) mEq/L Carbon Dioxide 19 (19-29) mEq/L BUN 17 (7-20) mg/dL Creatinine 0.70 (0.57-1.11) mg/dL Est GFR ( Amer) > 60 (> 60) Est GFR (Non-Af Amer) > 60 (> 60) BUN/Creatinine Ratio 24 (6-26) Glucose 126 H (70-99) mg/dL Calculated Osmolality 287 (280-300) Calcium 8.0 L (8.6-10.8) mg/dL Troponin I 0.01 (0-0.03) ng/mL Attestation Statement - Attestation Attestation: I, Marshall Haywood DO, examined this patient [id number] and my medical decision-making was reviewed with Dr. Patrick Gray, Resident Physician. I agree with the documented findings, disposition and treatment plan as described except to the extent set forth below. Please see my progress notes for details. 77-year-old female presents from home with what appears to be a syncopal event causing a fall. Evaluation was completed here showing a mid shaft right humeral fracture. She has no signs of acute dislocation. She has good palpable pulses in the distal aspect of the right upper extremity she does have some swelling to the midshaft of the right humerus but no signs of compartment presentation this point. Patient has normal sensation distal to the fingertips. No other visible signs of trauma or injury. She denied a closed head injury. She is currently not on Plavix or aspirin. Denies any blood thinners at home. Presentation is concerning for syncopal event and she will be evaluated for this including EKG chest x-ray troponin. She will also be admitted for pain control and surgical evaluation of her right arm fracture. Otherwise her physical exam is unremarkable. Pupils are equal and reactive she speaks in full sentences she has no signs of facial asymmetry or slurred speech. Her trachea is midline her lungs are clear heart is regular. Patient is moving other extremities with purpose. We will complete admission process for symptom control and syncopal evaluation. See detailed documentation of physical exam, medical intervention, medical decision-making and disposition and the resident physician's note
[2017-07-15 19:49] LABS: Basophils % 0.4 %; Eosinophils # 0.1 K/mcL (0.0-0.6); Eosinophils % 0.6 %; Hemoglobin 8.7 g/dL (11.5-15.4); Immature Granulocytes % 0.5 % (0-4); Lymphocytes # 1.3 K/mcL (0.6-4.6); Lymphocytes % 17.1 %; Mean Corpuscular HGB Conc 31.1 g/dL (31.6-35.5); Mean Corpuscular Hemoglobin 23.8 pg (28.0-33.3); Mean Corpuscular Volume 76.5 fL (83.0-100.0); Mean Platelet Volume 9.2 fL (9.4-12.4); Monocytes # 0.5 K/mcL (0.0-1.3); Neutrophils # 5.9 K/mcL (1.6-8.9); Platelet Count 177 K/mcL (140-400); Red Blood Count 3.66 M/mcL (3.82-4.97); Red Cell Distribution Width 16.8 % (11.5-14.5); Segmented Neutrophils % 75.4 %
[2017-07-15 20:04] LABS: BUN/Creatinine Ratio 24 (6-26); Blood Urea Nitrogen 17 mg/dL (7-20); Carbon Dioxide 19 mEq/L (19-29); Chloride 108 mEq/L (98-109); Glucose 126 mg/dL (70-99); Osmolality,Calculated 287 (280-300); Potassium 3.9 mEq/L (3.5-4.5); Sodium 137 mEq/L (136-145); eGFR For African Americans > 60 (> 60); eGFR For Non-African Americans > 60 (> 60)
[2017-07-15] MEDS ORDERED: *HR* HYDROmorphone (PF) 1 MG/ML SYRINGE ONE (21:08)
[2017-07-15 21:31] LABS: INR 1.1; Prothrombin Time 11.4 Seconds (9.4-12.1)
[2017-07-16] MEDS: *HR* Morphine 2 MG/ML SYRINGE IVP PRN ×5 (01:27→14:59)
[2017-07-16] MEDS ORDERED: Ondansetron 4 MG/2 ML VIAL IVP PRN ×2 (01:32→18:43)
[2017-07-16] MEDS ORDERED: Naloxone 0.4 MG/ML INJ IVP PRN ×2 (01:32→18:43)
[2017-07-16] MEDS ORDERED: Acetaminophen 325 MG TABLET PO PRN ×2 (01:32→18:43)
[2017-07-16] MEDS ORDERED: ALPRAZolam 0.5 MG TABLET PO PRN ×2 (01:36→18:43)
--- NOTE | 2017-07-16 01:42 | Internal Med History&Physical ---
Date of Encounter: 07/16/17 Time of Encounter: 01:39 Assessment and Plan (1) Humerus fracture Current visit: Yes Status: Acute Intractable right upper extremity pain secondary to humerus fracture Orthopedic surgery was consulted and will see the patient in the morning The patient has low risk to develop cardiac events during surgery according to the Adriel revised score Use morphine as needed, can switch to Dilaudid if pain is not controlled Immobilization, nothing by mouth after midnight, IV fluids Check a UA Omeprazole for GI prophylaxis and subcutaneous heparin for DVT prophylaxis. The patient will be admitted as inpatient, expected to stay more than 2 midnights. Full code. Time spent on this admission 40 minutes. Qualifiers: Encounter type: initial encounter Humerus Location: shaft Fracture type: closed Fracture morphology: spiral Fracture alignment: displaced Laterality: right Qualified Code(s): S42.341A - Displaced spiral fracture of shaft of humerus, right arm, initial encounter for closed fracture (2) Diastolic heart failure of unknown etiology Current visit: No Status: Chronic No exacerbation (3) Essential tremor Current visit: No Status: Chronic Continue primidone (4) Irritable bowel syndrome (IBS) Current visit: No Status: Chronic Qualifiers: Irritable bowel syndrome type: with diarrhea Qualified Code(s): K58.0 - Irritable bowel syndrome with diarrhea (5) Left bundle branch block (LBBB) on electrocardiogram Current visit: No Status: Chronic (6) Osteoporosis Current visit: No Status: Chronic Add calcium and vitamin D Qualifiers: Osteoporosis type: unspecified Encounter type: sequela Qualified Code(s) : M80.00XS - Age-related osteoporosis with current pathological fracture, unspecified site, sequela (7) Restless leg syndrome Current visit: No Status: Chronic Internal Medicine - H&P: HPI Chief complaint: Fall Admitted From: Emergency Dept History of present illness: Ms. Hopson is a 77 year old female with a past medical history of recurrent falls, anxiety , depression RLS, irritable bowel syndrome, neuropathy, diastolic CHF who came to the emergency room complaining of severe right shoulder pain after a mechanical fall. Patient has been falling several times over the past few years. She was in excruciating pain 10 out of 10 in intensity. X-ray showed a spiral mid to proximal shaft humeral fracture with displacement and shortening of the limp. Hemoglobin is 8.7 but has been stable from prior values. Blood pressure is 183/73. Orthopedic surgery was consulted and will see the patient in the morning. The patient denies any dizziness or weakness prior to the fall mentions that he was just a mechanical fall. Past Med Surg Social Fam HX - Past Medical History Medical history: arthritis, cardiomyopathy, CHF (Diastolic), osteoporosis, other (Depression, neuropathy, essential tremors, left bundle branch block, restless leg syndrome, irritable bowel syndrome, iron deficiency anemia, osteoporosis) Psychiatric history: anxiety, depression, other - Past Surgical History Surgical History: hip replacement, knee replacement, orthopedic, other ( Bilateral total knee replacement, bilateral hip surgeries), other (Ovarian cyst ectopy, pyloroplasty) - Social History Smoking Status: Never smoker Smokeless Tobacco Status: No Alcohol use: none Drug use: none - Family History Mother Hx Family Cardiac Disorders: No Hx Family Respiratory Disorders: No Hx Family Cancer: No Hx Family GI Disorders: No Hx Family Genitourinary Disorders: No Hx Family Musculoskeletal Disorders: No Hx Family Neuromuscular Disorders: No Hx Family Neurologic Disorders: No Hx Family HEENT Disorders: No Hx Family Autoimmune Disorders: No Hx Family Reproductive Disorders: No Hx Family Psychosocial Disorders: No Hx Family Medical Disorders: No - Additional Family History Additional family history: Denies family history Internal Medicine - H&P: Meds ALPRAZolam [Xanax 0.5 MG Tablet] 0.5 mg PO BID 07/15/17 [History] FLUoxetine HCl [Prozac] 20 mg PO QPM 07/15/17 [History] FLUoxetine HCl [Prozac] 40 mg PO QAM 07/15/17 [History] Gabapentin [Neurontin] 100 mg PO QAM 07/15/17 [History] Gabapentin [Neurontin] 300 mg PO HS 07/15/17 [History] Loperamide HCl [Imodium A-D] 6 mg PO TIDWM 07/15/17 [History] Melatonin 20 mg PO HS 07/15/17 [History] Primidone [Mysoline] 50 mg PO QPM 07/15/17 [History] Primidone [Mysoline] 100 mg PO QAM 07/15/17 [History] rOPINIRole [Requip] 3 mg PO QAM 07/15/17 [History] rOPINIRole [Requip] 6 mg PO HS 07/15/17 [History] 3 Allergy/AdvReac Type Severity Reaction Status Date / Time No Known Allergies Allergy Verified 07/15/17 18:17 All Systems PM: A 10-system review of systems was performed and is negative for pertinent findings except as documented above in the HPI. Review of systems: Denies any chest pain or shortness of breath, no abdominal pain, no dysuria. Other systems out of the 10 reviewed were negative - Constitutional Vitals: Temp Pulse Resp BP Pulse Ox 98.8 F 83 16 133/75 94 07/15/17 23:32 07/15/17 23:32 07/15/17 23:32 07/15/17 23:32 07/15/17 23:32 General appearance: Present: A&O X 3 - Head Head exam: Present: atraumatic, normocephalic - Eye Eye exam: Present: PERRL, conjuntiva pink, sclera anicteric Pupils: Present: PERRL Additional comments: Swelling of the right upper extremity, unable to move due to pain, deformation of the proximal right upper extremity - Neck Neck exam general surgery: Present: supple, trachea midline. Absent: lymphadenopathy - Respiratory Respiratory exam: Present: CTAB. Absent: accessory muscle use, rales, rhonchi, wheezes - Cardiovascular Cardiovascular exam: Present: RRR, +S1, +S2. Absent: diastolic murmur, gallop, rubs, systolic murmur - GI/Abdominal GI/Abdominal exam: Present: normal bowel sounds, soft, no peritoneal signs. Absent: distended, tenderness - Extremities Exam Extremities exam: Present: warm, radial pulses palpable and symmetrical. Absent : calf tenderness, cyanotic, pedal edema - Neurological Exam Neurological exam: Present: CN II-XII intact, oriented X3, no focal deficits. Absent: pronater drift, facial droop, speech deficit - Skin Skin exam: Present: dry, intact Internal Med - H&P Results - Labs CBC & Chem 7: 07/15/17 19:33 07/15/17 19:33
[2017-07-16] MEDS ORDERED: 0.9 % Sodium Chloride 1,000 ML IVC SCH ×2 (01:45→18:43)
[2017-07-16] MEDS: Ketorolac 30 MG/ML VIAL IVP PRN ×2 (02:17→09:44)
[2017-07-16 05:32] LABS: Basophils % 0.5 %; Eosinophils # 0.1 K/mcL (0.0-0.6); Eosinophils % 1.4 %; Hematocrit 26.1 % (35.3-44.9); Hemoglobin 7.8 g/dL (11.5-15.4); Immature Granulocytes % 0.3 % (0-4); Lymphocytes # 1.9 K/mcL (0.6-4.6); Lymphocytes % 32.7 %; Mean Corpuscular HGB Conc 29.9 g/dL (31.6-35.5); Mean Corpuscular Hemoglobin 23.3 pg (28.0-33.3); Mean Corpuscular Volume 77.9 fL (83.0-100.0); Mean Platelet Volume 9.9 fL (9.4-12.4); Monocytes # 0.5 K/mcL (0.0-1.3); Monocytes % 8.7 %; Neutrophils # 3.3 K/mcL (1.6-8.9); Platelet Count 176 K/mcL (140-400); Red Blood Count 3.35 M/mcL (3.82-4.97); Red Cell Distribution Width 16.7 % (11.5-14.5); Segmented Neutrophils % 56.4 %
[2017-07-16 05:47] LABS: INR 1.1; Prothrombin Time 12.3 Seconds (9.4-12.1)
[2017-07-16 05:49] LABS: BUN/Creatinine Ratio 21 (6-26); Blood Urea Nitrogen 17 mg/dL (7-20); Carbon Dioxide 24 mEq/L (19-29); Chloride 109 mEq/L (98-109); Glucose 116 mg/dL (70-99); Osmolality,Calculated 293 (280-300); Sodium 140 mEq/L (136-145); eGFR For African Americans > 60 (> 60); eGFR For Non-African Americans > 60 (> 60)
[2017-07-16] MEDS: *HR* Heparin 5,000 UNIT/ML VIAL SQ SCH ×2 (07:05→19:07)
[2017-07-16] MEDS ORDERED: Gabapentin 100 MG CAPSULE PO SCH (09:00)
[2017-07-16] MEDS ORDERED: Primidone 50 MG TABLET PO SCH ×2 (09:00→18:00)
--- NOTE | 2017-07-16 11:56 | Orthopedic Consult Note ---
Date of Encounter: 07/16/17 Time of Encounter: 12:15 Assessment and Plan (1) Closed right humeral fracture Current Visit: Yes Status: Acute Qualifiers: Encounter type: initial encounter Humerus Location: shaft Fracture morphology: spiral Fracture alignment: displaced Qualified Code(s): S42.341A - Displaced spiral fracture of shaft of humerus, right arm, initial encounter for closed fracture (2) Right arm pain Current Visit: Yes Status: Acute (3) Osteoporosis Current Visit: No Status: Chronic Qualifiers: Osteoporosis type: unspecified Presence of current pathological fracture: with current pathological fracture Encounter type: sequela Qualified Code(s) : M80.00XS - Age-related osteoporosis with current pathological fracture, unspecified site, sequela History of Present Illness Chief complaint: right arm pain HPI: Ms. Hopson is a 77 year old female admitted to [facility] after presenting to ED on 07/15 with mechanical fall onto right shoulder. Patient was admitted for surgical intervention. Patient has h/o osteopenia and has sustained bilateral hip fractures repaired here at [facility] within the past 2 years per patient. She states she had her bilateral knees replaced in [place], [place]. She admits to DEXA scan performed by PCP in May 2017 and states she discussed Prolia treatment with her PCP but denies having received any osteoporosis related medications since that time. Patient resting comfortably in bed upon examination with her Sap Specialist at bedside. Verbal permission granted by patient to discuss her medical condition with Sap Specialist present in room. RUE in simple sling. Right hand and wrist motion intact. Any disturbance of upper arm causes significant pain. Neurovascularly intact. Dianostic imaging reveals: HISTORY: ORDERING SYSTEM PROVIDED HISTORY: TRAUMA/PAIN Additional tech notes: 1...2 NURSES @0418; ORDERING SYSTEM PROVIDED HISTORY: right humerus radiograph FINDINGS: Two views of the right shoulder in two views of the right humerus were reviewed. There is an acute spiral fracture of the proximal to mid diaphysis of the right humerus with 1 shaft with displacement of the distal fracture fragment. The remainder of the osseous structures appear intact. The bones are osteopenic. Mild osteoarthritis of the glenohumeral and acromioclavicular joints. The surrounding soft tissue structures appear unremarkable. XR/XR humerus RT IMPRESSION: 1. Acute, displaced fracture of the proximal to mid diaphysis of the right humerus. 2. Osteopenia. D/ / Francesco Cash MD / Francesco Cash MD Case discussed with Dr. Steven - patient to have surgical intervention today of Right humerus ORIF for Acute, displaced fracture of the proximal to mid diaphysis of the right humerus. Written consent obtained from patient after answering her questions to patient's satisfaction. She is to be NPO. Continue with NO right shoulder motion - continue in sling. Patient to follow up with [facility] on regular basis post-operatively. Patient verbalizes agreement to keep regular follow up with our office. Thank you for this consultation. Past Med Surg Social Fam HX - Past Medical History Medical history: arthritis, cardiomyopathy, CHF (Diastolic), osteoporosis, other (Depression, neuropathy, essential tremors, left bundle branch block, restless leg syndrome, irritable bowel syndrome, iron deficiency anemia, osteoporosis) Psychiatric history: anxiety, depression, other - Past Surgical History Surgical History: hip replacement, knee replacement, orthopedic, other ( Bilateral total knee replacement, bilateral hip surgeries), other (Ovarian cyst ectopy, pyloroplasty) - Social History Smoking Status: Never smoker Smokeless Tobacco Status: No Alcohol use: none Drug use: none - Family History Mother Hx Family Cardiac Disorders: No Hx Family Respiratory Disorders: No Hx Family Cancer: No Hx Family GI Disorders: No Hx Family Genitourinary Disorders: No Hx Family Musculoskeletal Disorders: No Hx Family Neuromuscular Disorders: No Hx Family Neurologic Disorders: No Hx Family HEENT Disorders: No Hx Family Autoimmune Disorders: No Hx Family Reproductive Disorders: No Hx Family Psychosocial Disorders: No Hx Family Medical Disorders: No Medications and Allergies ALPRAZolam [Xanax 0.5 MG Tablet] 0.5 mg PO BID 07/15/17 [History] FLUoxetine HCl [Prozac] 20 mg PO QPM 07/15/17 [History] FLUoxetine HCl [Prozac] 40 mg PO QAM 07/15/17 [History] Gabapentin [Neurontin] 100 mg PO QAM 07/15/17 [History] Gabapentin [Neurontin] 300 mg PO HS 07/15/17 [History] Loperamide HCl [Imodium A-D] 6 mg PO TIDWM 07/15/17 [History] Melatonin 20 mg PO HS 07/15/17 [History] Primidone [Mysoline] 50 mg PO QPM 07/15/17 [History] Primidone [Mysoline] 100 mg PO QAM 07/15/17 [History] rOPINIRole [Requip] 3 mg PO QAM 07/15/17 [History] rOPINIRole [Requip] 6 mg PO HS 07/15/17 [History] 3 Allergy/AdvReac Type Severity Reaction Status Date / Time No Known Allergies Allergy Verified 07/15/17 18:17 All Systems Reviewed: A 10-system review of systems was performed and is negative for pertinent findings except as documented above in the HPI. Physical Exam - Constitutional Vitals: Temp Pulse Resp BP Pulse Ox 97.9 F 71 16 105/61 95 07/16/17 07:00 07/16/17 07:00 07/16/17 07:00 07/16/17 07:00 07/16/17 07:00 Results - Labs Result Diagrams: 07/16/17 04:58 07/16/17 04:58 Labs: Abnormal lab results RBC 3.35 M/mcL (3.82-4.97) L 07/16/17 04:58 Hgb 7.8 g/dL (11.5-15.4) L 07/16/17 04:58 Hct 26.1 % (35.3-44.9) L 07/16/17 04:58 MCV 77.9 fL (83.0-100.0) L 07/16/17 04:58 MCH 23.3 pg (28.0-33.3) L 07/16/17 04:58 MCHC 29.9 g/dL (31.6-35.5) L 07/16/17 04:58 RDW 16.7 % (11.5-14.5) H 07/16/17 04:58 PT 12.3 Seconds (9.4-12.1) H 07/16/17 04:58 Glucose 116 mg/dL (70-99) H 07/16/17 04:58 Calcium 8.0 mg/dL (8.6-10.8) L 07/16/17 04:58 H & H 07/16/17 Range/Units 04:58 Hgb 7.8 L (11.5-15.4) g/dL Hct 26.1 L (35.3-44.9) % All other labs normal. Consult Discharge Plan - Plan Referrals: King Winter MD [Primary Care Provider] - Macrina Oneill PAC [Physician Transmission And Protection Engineer] - 07/22/17 1:45 pm
[2017-07-16 12:19] LABS: Bilirubin,Urine Small (Negative); Blood,Urine Negative (Negative); Clarity,Urine Cloudy (Clear); Color,Urine Dark Yellow (Yellow); Glucose,Urine (UA) Normal (Normal); Ketones,Urine Negative (Negative); Leukocyte Esterase,Urine Moderate (Negative); Nitrite,Urine Negative (Negative); PH,Urine 5.5 pH Units (5.0-8.0); Protein,Urine Negative (Neg-Trace); Specific Gravity,Urine 1.023 (1.010-1.025); Urobilinogen,Urine Normal (Normal)
[2017-07-16 12:20] LABS: Bacteria,Urine None Seen per hpf (None-Few); Hyaline Casts,Urine Few per lpf (None-Few); Squamous Epithelial Cell,Urine Many per lpf (None-Few); WBC,Urine 50-100 per hpf (0-3)
--- NOTE | 2017-07-16 13:58 | Event Note ---
Date of Encounter: 07/16/17 Time of Encounter: 08:15 Patient is awake and alert. Reports pain in the right upper arm. Right upper arm and currently in sling. Denies any fever or chills. Pain control with current pain medication regimen. Orthopedic surgery consulted. Plan for possible surgery later today. Patient is clear from a medical standpoint for surgery at this time. 2-D echo done in May showed an EF of 60-65%.
[2017-07-16] MEDS ORDERED: *HR* Rocuronium Bromide 50 MG/5 ML VIAL ONE (15:51)
[2017-07-16] MEDS ORDERED: Lidocaine -MPF 4% 5 ML AMPUL ONE (15:51)
[2017-07-16] MEDS ORDERED: *HR* Propofol 200 MG/20 ML VIAL IVP ONE (15:51)
[2017-07-16] MEDS ORDERED: Lidocaine -MPF 2% 2 ML VIAL ONE (15:51)
[2017-07-16] MEDS ORDERED: *HR* FentaNYL (PF) 100 MCG/2 ML VIAL ONE ×2 (15:51→16:03)
--- NOTE | 2017-07-16 15:54 | Anesthesia Evaluation PreOp ---
Date of Encounter: 07/16/17 Time of Encounter: 15:52 - Past History Planned Operation: ORIF R-humerus Cardiac History: CHF (Diastolic heart failure of unknown etiology per admission H&P), Other (LBBB. ECHO 06/04/2017 - Impressions: LVEF 60-65%. Normal LV chamber size, wall thickness and function. Mild left ventricular diastolic dysfunction. Atypical septal motion consistent with bundle branch block. Normal right ventricular structure and function. No evidence of pulmonary hypertension. No significant valvular dysfunction. Left Ventricular Wall Motion: Rest Echo Findings All wall segments showed normal motion. Findings: Study Quality * Technically adequate exam. ECG Findings * Sinus rhythm with BBB. Left Ventricle * LVEF 60-65%. * Normal LV chamber size, wall thickness and function. * Mild left ventricular diastolic dysfunction. 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 Anxiety/Depression maintained on Prozac, Xanax, RLS maintained on Requip. Chronic pain maintained on Gabapentin) Other Medical History: GERD (IB), Other (Osteoporosis) Anesthesia History: No Prior Anesthetic Complications, Past Anesthesia (B-TKR, B -Hip surgery, Ovarian cystectomy, PYloroplasty) Alcohol Use: none Drug use: none Medications and Allergies ALPRAZolam [Xanax 0.5 MG Tablet] 0.5 mg PO BID 07/15/17 [History] FLUoxetine HCl [Prozac] 20 mg PO QPM 07/15/17 [History] FLUoxetine HCl [Prozac] 40 mg PO QAM 07/15/17 [History] Gabapentin [Neurontin] 100 mg PO QAM 07/15/17 [History] Gabapentin [Neurontin] 300 mg PO HS 07/15/17 [History] Loperamide HCl [Imodium A-D] 6 mg PO TIDWM 07/15/17 [History] Melatonin 20 mg PO HS 07/15/17 [History] Primidone [Mysoline] 50 mg PO QPM 07/15/17 [History] Primidone [Mysoline] 100 mg PO QAM 07/15/17 [History] rOPINIRole [Requip] 3 mg PO QAM 07/15/17 [History] rOPINIRole [Requip] 6 mg PO HS 07/15/17 [History] 3 Allergy/AdvReac Type Severity Reaction Status Date / Time No Known Allergies Allergy Verified 07/15/17 18:17 - Meds/Allergy Pre-op Review Medications Reviewed: Yes Allergies Reviewed: Yes Beta Blockers on Current Med List: No Anesthesia Results - Labs 07/16/17 04:58 07/16/17 04:58 Laboratory Results WBC 5.8 K/mcL (4.3-11.1) 07/16/17 04:58 RBC 3.35 M/mcL (3.82-4.97) L 07/16/17 04:58 Hgb 7.8 g/dL (11.5-15.4) L 07/16/17 04:58 Hct 26.1 % (35.3-44.9) L 07/16/17 04:58 MCV 77.9 fL (83.0-100.0) L 07/16/17 04:58 MCH 23.3 pg (28.0-33.3) L 07/16/17 04:58 MCHC 29.9 g/dL (31.6-35.5) L 07/16/17 04:58 RDW 16.7 % (11.5-14.5) H 07/16/17 04:58 Plt Count 176 K/mcL (140-400) 07/16/17 04:58 MPV 9.9 fL (9.4-12.4) 07/16/17 04:58 Immature Gran % 0.3 % (0-4) 07/16/17 04:58 Seg Neutrophils % 56.4 % 07/16/17 04:58 Lymphocytes % 32.7 % 07/16/17 04:58 Monocytes % 8.7 % 07/16/17 04:58 Eosinophils % 1.4 % 07/16/17 04:58 Basophils % 0.5 % 07/16/17 04:58 Neutrophils # 3.3 K/mcL (1.6-8.9) 07/16/17 04:58 Lymphocytes # 1.9 K/mcL (0.6-4.6) 07/16/17 04:58 Monocytes # 0.5 K/mcL (0.0-1.3) 07/16/17 04:58 Eosinophils # 0.1 K/mcL (0.0-0.6) 07/16/17 04:58 Basophils # 0.0 K/mcL (0.0-0.2) 07/16/17 04:58 PT 12.3 Seconds (9.4-12.1) H 07/16/17 04:58 INR 1.1 07/16/17 04:58 APTT 29.0 Seconds (26.0-36.0) 07/15/17 19:33 Sodium 140 mEq/L (136-145) 07/16/17 04:58 Potassium 4.0 mEq/L (3.5-4.5) 07/16/17 04:58 Chloride 109 mEq/L (98-109) 07/16/17 04:58 Carbon Dioxide 24 mEq/L (19-29) 07/16/17 04:58 BUN 17 mg/dL (7-20) 07/16/17 04:58 Creatinine 0.81 mg/dL (0.57-1.11) 07/16/17 04:58 Est GFR ( Amer) > 60 (> 60) 07/16/17 04:58 Est GFR (Non-Af Amer) > 60 (> 60) 07/16/17 04:58 BUN/Creatinine Ratio 21 (6-26) 07/16/17 04:58 Glucose 116 mg/dL (70-99) H 07/16/17 04:58 Calculated Osmolality 293 (280-300) 07/16/17 04:58 Calcium 8.0 mg/dL (8.6-10.8) L 07/16/17 04:58 Troponin I 0.01 ng/mL (0-0.03) 07/15/17 19:34 Urine Color Dark Yellow (Yellow) 07/16/17 12:10 Urine Clarity Cloudy (Clear) A 07/16/17 12:10 Urine pH 5.5 pH Units (5.0-8.0) 07/16/17 12:10 Ur Specific [place] 1.023 (1.010-1.025) 07/16/17 12:10 Urine Protein Negative mg/dL (Neg-Trace) 07/16/17 12:10 Urine Glucose (UA) Normal mg/dL (Normal) 07/16/17 12:10 Urine Ketones Negative mg/dL (Negative) 07/16/17 12:10 Urine Blood Negative (Negative) 07/16/17 12:10 Urine Nitrite Negative (Negative) 07/16/17 12:10 Urine Bilirubin Small (Negative) H 07/16/17 12:10 Urine Urobilinogen Normal mg/dL (Normal) 07/16/17 12:10 Ur Leukocyte Esterase Moderate (Negative) H 07/16/17 12:10 Urine Microscopic RBC 3-5 per hpf (0-3) H 07/16/17 12:10 Urine Microscopic WBC 50-100 per hpf (0-3) H 07/16/17 12:10 Ur Squamous Epith Cells Many per lpf (None-Few) H 07/16/17 12:10 Urine Bacteria None Seen per hpf (None-Few) 07/16/17 12:10 Hyaline Casts Few per lpf (None-Few) 07/16/17 12:10 Ur Culture Indicated? YES (NO) A 07/16/17 12:10 Impressions Shoulder X-Ray 07/15/17 18:18 IMPRESSION: 1. Acute, displaced fracture of the proximal to mid diaphysis of the right humerus. 2. Osteopenia. D/ / Francesco Cash MD / Francesco Cash MD Interpreting Provider: Francesco Cash MD Humerus X-Ray 07/15/17 18:58 IMPRESSION: 1. Acute, displaced fracture of the proximal to mid diaphysis of the right humerus. 2. Osteopenia. D/ / Francesco Cash MD / Francesco Cash MD Interpreting Provider: Francesco Cash MD Chest X-Ray 07/15/17 19:15 IMPRESSION: No acute abnormality detected. D/ / Marc Finley MD / Marc Finley MD Interpreting Provider: Marc Finley MD Pelvis X-Ray 07/15/17 19:26 IMPRESSION: No acute abnormality detected. D/ / Marc Finley MD / Marc Finley MD Interpreting Provider: Marc Finley MD - Imaging EKG: image reviewed Anesthesia Exam Vital Signs Temp Pulse Resp BP Pulse Ox 07/16/17 11:58 97.9 F 73 18 130/71 94 07/16/17 07:00 97.9 F 71 16 105/61 95 07/16/17 03:32 98.8 F 83 16 133/70 93 07/15/17 23:32 98.8 F 83 16 133/75 94 07/15/17 21:49 98.9 F 89 16 142/76 94 07/15/17 21:21 18 176/78 07/15/17 18:24 97 F L 71 24 183/73 100 Intake and Output 07/15/17 07/16/17 07/16/17 23:59 07:59 15:59 Output Total 0 / 0 1 / 1 Balance 0 / 0 -1 / -1 Output: Urine 0 / 0 1 / 1 Other: # Voids 1 Weight 65.091 kg 64.093 kg Patient Weight 07/16/17 23:59 Weight 64.093 kg - HEENT Pupil (Motor): Pupils equal, EOMI Mallampati: III (GLIDESCOPE STRONGLY ADVISED) Teeth: Normal Oral Opening: Less than or equal to 3 - STAMPING MILL TENDER LOC: Oriented STAMPING MILL TENDER Motor: Normal RUE, Normal LUE, Normal RLE, Normal LLE, Normal Face STAMPING MILL TENDER Sensory: Normal: RUE, LUE, RLE, LLE, Face - Cardiac Rhythm: Regular Murmur: None - Pulmonary Breath Sounds: bilateral Clear Respiratory Effort: Symmetrical Anesthesia Assess/Plan ASA Score: 3 Modified [place] Scale for Level of Consciousness: Cooperative, oriented, and tranquil Anesthetic Plan: General Monitoring Plan: Standard Monitors Recovery Plan: PACU Anes Supervising Prov Stmt: Pt seen/evaluated, R&B discussed, questions answered and consent obtained. Carolyn Gonzales MD
[2017-07-16] MEDS ORDERED: *HR* Midazolam HCl 2 MG/2 ML VIAL ONE (16:03)
[2017-07-16] MEDS ORDERED: ROPIVACAINE HCL/PF 0.5% 30 ML VIAL ONE (16:13)
[2017-07-16] MEDS ORDERED: Bupivacaine/Clonidine Syringe 1 EACH SYRINGE ONE (16:14)
[2017-07-16] MEDS ORDERED: ceFAZolin 2,000 MG in D5% in Water 100 ML IVPB ONE (16:23)
[2017-07-16] MEDS ORDERED: CeFAZolin Syringe 2,000MG/20 ML SYR IVPB ONE ×2 (16:31→16:33)
--- NOTE | 2017-07-16 16:32 | Anesthesia Procedures ---
Date of Encounter: 07/16/17 Time of Encounter: 16:20 Procedures: Anesthesia - Nerve Block Procedure Date: 07/16/17 Time: 16:20 Allergies/Adv Reactions: NKDA Pre-op Diagnosis: RIGHT HUMERUS ORIF Surgical Procedure: RIGHT HUMERUS FRACTURE Checklist: Correct Patient Identifier, Correct procedure, History checked Correct side: Right Blood Thinner: No Monitor Applied: EKG, BP, Pulse Oximetry Supplemental Oxygen via Nasal Cannula (L/min): 2 Sedation: Versed (mg): 1 Sedation: Fentanyl (mcg): 50 Indication: Post Op Analgesia Pre-op Neuro Deficits: No Block Type: Supraclavicular (+SCP) Catheter placed: No Sterile Technique: Yes Ultrasound used: Yes Anatomy identified: Yes Visual spread of Local: Yes Neuro Stimulation: No Blood on Needle Aspiration: Yes (DURING NEEDLE RESPOSITION; ABORTED; NEG2ND ATTEMPT) Smooth Injection of Local: Yes Pain with Injection of Local: No Prep: Chlorhexadine Needle: 22 x 50 mm Stimuplex Local: 0.25% Bupivicaine w/Clonidine 20 mcg/cc, Ropivacaine Volume (cc): 50 Number of Attempts: 2 Complications: None/effective block Vitals: Vital Signs - Last 8 Hours Temp Pulse Resp BP Pulse Ox 07/16/17 16:20 77 15 162/69 100 07/16/17 11:58 97.9 F 73 18 130/71 94 Intake and Output 07/16/17 07/16/17 07/16/17 07:59 15:59 23:59 Output Total 1 / Balance -1 / -1 Output: Urine 1 / Other: # Voids 1 Weight 64.093 kg Patient Weight 07/16/17 23:59 Weight 64.093 kg Comments: PER DR. STEELE
[2017-07-16] MEDS ORDERED: EPHEDrine 50 MG/ML VIAL ONE (16:55)
[2017-07-16] MEDS ORDERED: Dexamethasone 4 MG/ML VIAL ONE (17:01)
[2017-07-16] MEDS ORDERED: Ondansetron 4 MG/2 ML VIAL ONE (17:01)
[2017-07-16] MEDS ORDERED: Ondansetron 4 MG/2 ML VIAL IVP ONE ×2 (17:23→18:43)
[2017-07-16] MEDS ORDERED: *HR* Labetalol 20 MG/4 ML SYRINGE IVP PRN ×2 (17:23→18:43)
[2017-07-16] MEDS ORDERED: *HR* HYDROmorphone (PF) 1 MG/ML SYRINGE IVP PRN ×2 (17:23→18:43)
[2017-07-16] MEDS ORDERED: FLUoxetine 20 MG CAPSULE PO SCH (18:00)
--- NOTE | 2017-07-16 18:41 | Operative Note ---
Date of procedure: 07/16/17 Pre-op diagnosis: Right humeral shaft fracture Post-op diagnosis: same Procedure: Right humerus open reduction internal fixation Implants: Synthes 8 hole 4.5 mm narrow LCP DCP locking Complications: None Anesthesia: benjamin STERN Surgeon: Adrien Steven Estimated blood loss (cc): 200 Specimen: 0 Condition: stable Disposition: PACU Procedure in Detail: The patient was brought into the operating room and placed OR table in supine position with the right upper extremity on a hand table. A sign in was performed. The patient underwent general anesthesia. The right upper extremity was then prepped and draped in usual sterile fashion. A timeout was performed. The coracoid was marked out. An anterolateral approach was then performed making a 15 cm long usual incision starting from the proximal anterior shoulder approximate 5 segments from the coracoid, extending longitudinally on the lateral aspect of the arm to about 8 cm from the lateral epicondyle. The subcutaneous tissues plane dissected and the lateral antebrachial cutaneous nerve was identified. Hemostasis obtained with the Bovie electrocautery. The deltoid muscle deltoid tubercle was identified. I also identified the biceps and brachialis muscles. A plane was developed between the biceps and brachialis. The musculocutaneous nerve was also seen and protected. The brachialis was split longitudinally with its midline. The fracture fragments were also protruding through at this level. The fracture one more proximally. It was a long spiral fracture involving the proximal third of the shaft. I then elevated the deltoid muscle subperiosteally from its more anterior position and is also elevating the pectoralis insertion reflecting it slightly anteriorly to give exposure. The fractures was clearly visualized. The fracture was reduced and clamped in place. A Synthes 8 hole locking 4.5 LCDC plate was chosen. This was spanned across 4 screws proximally and 4 screws distally. The plate was secured in the proximal fragment. The fracture with a bicortical nonlocking screw. A second screw was placed and distal side in compression mode. I also axially compressed the fracture while tightening down the compression screw. Since this was a spiral fracture, also place a lag screw in hole #5 on the distal fragment and capturing the proximal fragment. Oblique lag screw was placed which compressed the fracture site even better. Remaining screws in place in standard technique using combination of locking and nonlocking screws. This gave very rigid and stable fracture reduction. Fluoroscopic views were checked making sure with good screw placement and good alignment with good fracture reduction. The wounds irrigated with normal saline. The deltopectoral interval was closed over a 2-0 Vicryl figure-of- eight sutures. Also likely re-oppose the brachialis fascia with 2-0 Vicryl [id number] sutures. The subcutaneous skin was then closed with 2-0 Vicryl sutures. Then the skin was closed with genevieve. Sterile dressings applied. The patient is placed into a sling shot. She was then extubated and taken to recovery room stable condition.
--- NOTE | 2017-07-16 19:13 | Anesthesia Evaluation Post Op ---
Date of Encounter: 07/16/17 Time of Encounter: 19:12 - Vital Signs Vital Signs: Vital Signs/O2 Sat, Most Current Temp Pulse Resp BP Pulse Ox 98.2 F 90 16 149/54 98 07/16/17 18:37 07/16/17 18:47 07/16/17 18:47 07/16/17 18:47 07/16/17 18:47 - Lungs Lungs: Clear Ascult./Percussion - Airway Airway: Non-obstructed - Cardiovascular Regular Rate - Mental Status Mental Status: Alert & Oriented, Answers Appropriately - Pain Pain Scale: 0 (denies) Pain Scale used: Numeric (1 - 10) - Nausea Vomiting Nausea Vomiting: Not Present - Hydration Hydration: NPO, Has not voided - Discharge PostOp Status: Transfer Patient to floor
[2017-07-16 19:26] LABS: Hematocrit 26.6 % (35.3-44.9); Hemoglobin 8.1 g/dL (11.5-15.4)
[2017-07-16] MEDS ORDERED: Gabapentin 300 MG CAPSULE PO SCH (21:00)
[2017-07-16] MEDS: CeFAZolin Premix DUPLEX 2,000 MG/50 ML BAG IVPB SCH (23:51)
[2017-07-16] MEDS: Gabapentin 300 MG CAPSULE PO SCH (23:53)
[2017-07-17] MEDS ORDERED: CeFAZolin Syringe 2,000MG/20 ML SYR IVPB SCH
[2017-07-17 03:57] LABS: Basophils % 0.3 %; Hematocrit 25.5 % (35.3-44.9); Hemoglobin 7.5 g/dL (11.5-15.4); Immature Granulocytes % 0.3 % (0-4); Lymphocytes # 0.8 K/mcL (0.6-4.6); Mean Corpuscular HGB Conc 29.4 g/dL (31.6-35.5); Mean Corpuscular Hemoglobin 23.5 pg (28.0-33.3); Mean Corpuscular Volume 79.9 fL (83.0-100.0); Mean Platelet Volume 10.4 fL (9.4-12.4); Monocytes # 0.4 K/mcL (0.0-1.3); Monocytes % 5.4 %; Neutrophils # 5.3 K/mcL (1.6-8.9); Platelet Count 162 K/mcL (140-400); Red Blood Count 3.19 M/mcL (3.82-4.97)
[2017-07-17 04:17] LABS: BUN/Creatinine Ratio 17 (6-26); Blood Urea Nitrogen 14 mg/dL (7-20); Calcium 7.8 mg/dL (8.6-10.8); Carbon Dioxide 21 mEq/L (19-29); Chloride 106 mEq/L (98-109); Glucose 233 mg/dL (70-99); Osmolality,Calculated 290 (280-300); Potassium 4.4 mEq/L (3.5-4.5); Sodium 136 mEq/L (136-145); eGFR For African Americans > 60 (> 60); eGFR For Non-African Americans > 60 (> 60)
[2017-07-17] MEDS: *HR* Heparin 5,000 UNIT/ML VIAL SQ SCH ×3 (07:56→17:46)
[2017-07-17] MEDS: Primidone 50 MG TABLET PO SCH ×2 (09:24→17:45)
[2017-07-17] MEDS: Gabapentin 100 MG CAPSULE PO SCH (09:24)
[2017-07-17] MEDS: CeFAZolin Premix DUPLEX 2,000 MG/50 ML BAG IVPB SCH (09:24)
--- NOTE | 2017-07-17 09:34 | Orthopedics Progress Note ---
Date of Encounter: 07/17/17 Time of Encounter: 09:32 Subjective Interval history: S: Resting comfortably in bed Pain well controlled O: Afebrile and her vital signs are stable Dressing and sling on the right upper extremity intact Neurovascularly intact distally A: Post open reduction and internal fixation of the right humerus P: Doing well postoperatively Hemoglobin is 7.5 and one unit has been ordered Resume postoperative care per Dr. Steven's postop instructions Objective Vital signs: Vital Signs Temp Pulse Resp BP Pulse Ox 07/17/17 08:05 98.2 F 76 18 126/49 99 07/16/17 22:00 98.4 F 93 16 134/61 95 07/16/17 20:27 98.1 F 94 16 123/54 94 07/16/17 20:07 98.1 F 95 16 92 07/16/17 19:37 98.2 F 93 16 121/51 95 07/16/17 19:17 97.9 F 89 16 146/57 96 07/16/17 19:07 97.8 F 91 16 147/53 94 07/16/17 18:57 86 16 146/55 96 07/16/17 18:47 90 16 149/54 98 07/16/17 18:37 98.2 F 89 16 147/69 100 07/16/17 16:20 77 15 162/69 100 07/16/17 11:58 97.9 F 73 18 130/71 94 Intake and Output 07/16/17 07/17/17 07/17/17 23:59 07:59 15:59 Output Total 600 / 600 200 / 200 Balance -600 / -600 -200 / -200 Output: Urine 400 / 400 200 / 200 Estimated Blood Loss 200 / 200 - Labs CBC & BMP: 07/17/17 02:32 07/17/17 02:32 Labs: Abnormal lab results RBC 3.19 M/mcL (3.82-4.97) L 07/17/17 02:32 Hgb 7.5 g/dL (11.5-15.4) L 07/17/17 02:32 Hct 25.5 % (35.3-44.9) L 07/17/17 02:32 MCV 79.9 fL (83.0-100.0) L 07/17/17 02:32 MCH 23.5 pg (28.0-33.3) L 07/17/17 02:32 MCHC 29.4 g/dL (31.6-35.5) L 07/17/17 02:32 RDW 17.0 % (11.5-14.5) H 07/17/17 02:32 PT 12.3 Seconds (9.4-12.1) H 07/16/17 04:58 Glucose 233 mg/dL (70-99) H 07/17/17 02:32 Calcium 7.8 mg/dL (8.6-10.8) L 07/17/17 02:32 Urine Clarity Cloudy (Clear) A 07/16/17 12:10 Urine Bilirubin Small (Negative) H 07/16/17 12:10 Ur Leukocyte Esterase Moderate (Negative) H 07/16/17 12:10 Urine Microscopic RBC 3-5 per hpf (0-3) H 07/16/17 12:10 Urine Microscopic WBC 50-100 per hpf (0-3) H 07/16/17 12:10 Ur Squamous Epith Cells Many per lpf (None-Few) H 07/16/17 12:10 Ur Culture Indicated? YES (NO) A 07/16/17 12:10 - VTE Documentation of Mechanical Device: Intermittent pneumatic compression device Consult Discharge Plan - Plan Referrals: Macrina Oneill PAC [Physician Manager Communication] - 07/22/17 1:45 pm King Winter MD [Primary Care Provider] -
[2017-07-17] MEDS: *HR* OxyCODONE/APAP 7.5/325 TABLET PO PRN ×3 (09:35→20:28)
--- NOTE | 2017-07-17 09:42 | Internal Med Progress Note ---
Date of Encounter: 07/17/17 Time of Encounter: 08:25 - Assessment and plan (1) Humerus fracture Current Visit: Yes Status: Acute Assessment and plan: Status post open reduction and internal fixation. Patient doing well postprocedure. Pain well controlled. Patient does not want physical therapy here. She wishes to go to rehabilitation for physical therapy. smooth and burr worker composites consulted Qualifiers: Encounter type: initial encounter Humerus Location: shaft Fracture type: closed Fracture morphology: spiral Fracture alignment: displaced Laterality: right Qualified Code(s): S42.341A - Displaced spiral fracture of shaft of humerus, right arm, initial encounter for closed fracture (2) Diastolic heart failure of unknown etiology Current Visit: Yes Status: Chronic Assessment and plan: Not in acute exacerbation (3) Essential tremor Current Visit: Yes Status: Chronic Assessment and plan: Continue primidone (4) Irritable bowel syndrome (IBS) Current Visit: Yes Status: Chronic Assessment and plan: Chronic. Patient takes Imodium before each meal. We will continue this medication Qualifiers: Irritable bowel syndrome type: with diarrhea Qualified Code(s): K58.0 - Irritable bowel syndrome with diarrhea (5) Left bundle branch block (LBBB) on electrocardiogram Current Visit: No Status: Chronic (6) Osteoporosis Current Visit: No Status: Chronic Assessment and plan: Follow-up outpatient with primary care provider in orthopedics Qualifiers: Osteoporosis type: unspecified Presence of current pathological fracture: with current pathological fracture Encounter type: sequela Qualified Code(s) : M80.00XS - Age-related osteoporosis with current pathological fracture, unspecified site, sequela (7) Restless leg syndrome Current Visit: No Status: Chronic Assessment and plan: Continue Requip (8) Anemia Current Visit: Yes Status: Acute Assessment and plan: Hemoglobin 7.5 today. Due to intraoperative blood losses. We will transfuse 1 unit packed red blood cells. We will follow blood counts closely. Moderate risk for complications. Qualifiers: Anemia type: other cause Other causes of anemia: other cause, not classified Qualified Code(s): D64.89 - Other specified anemias - Subjective Interval history: Patient is doing well today. She complains of some tingling in her hand but otherwise pain in her right arm is well controlled. No acute issues overnight. Underwent surgery yesterday and is doing well postoperatively - Constitutional Vitals: Temp Pulse Resp BP Pulse Ox 98.2 F 76 18 126/49 99 07/17/17 08:05 07/17/17 08:05 07/17/17 08:05 07/17/17 08:05 07/17/17 08:05 General appearance: Present: cooperative, A&O X 3, answers questions appropriately - Neck Neck exam general surgery: Present: supple, trachea midline. Absent: lymphadenopathy - Respiratory Respiratory exam: Present: CTAB. Absent: accessory muscle use, rales, rhonchi, wheezes - Cardiovascular Cardiovascular exam: Present: RRR, +S1, +S2. Absent: diastolic murmur, gallop, rubs, systolic murmur - GI/Abdominal GI/Abdominal exam: Present: normal bowel sounds, soft, no peritoneal signs. Absent: distended, tenderness - Extremities Exam Extremities exam: Present: warm, radial pulses palpable and symmetrical. Absent : calf tenderness, cyanotic, pedal edema Additional comments: Right upper extremity bandaged and in sling and brace Internal Medicine: Result - Labs CBC & Chem 7: 07/17/17 02:32 07/17/17 02:32 Labs: Short CBC 07/16/17 07/17/17 Range/Units 19:17 02:32 WBC 6.5 (4.3-11.1) K/mcL Hgb 8.1 L 7.5 L (11.5-15.4) g/dL Hct 26.6 L 25.5 L (35.3-44.9) % Plt Count 162 (140-400) K/mcL Neutrophils # 5.3 (1.6-8.9) K/mcL BMP 07/17/17 02:32 Sodium 136 Potassium 4.4 Chloride 106 Carbon Dioxide 21 BUN 14 Creatinine 0.82 Glucose 233 H Calcium 7.8 L Urine 07/16/17 Range/Units 12:10 Urine Color Dark Yellow (Yellow) Urine Clarity Cloudy A (Clear) Urine pH 5.5 (5.0-8.0) pH Units Ur Specific [place] 1.023 (1.010-1.025) Urine Protein Negative (Neg-Trace) mg/dL Urine Glucose (UA) Normal (Normal) mg/dL - ABG Interpretation ABG results: PT/INR, D-dimer PT 12.3 Seconds (9.4-12.1) H 07/16/17 04:58 - VTE Documentation of Mechanical Device: Venous foot pump, device Consult Discharge Plan - Plan Referrals: Macrina Oneill PAC [Physician [employer] B[employer] Developer] - 07/22/17 1:45 pm King Winter MD [Primary Care Provider] -
[2017-07-17] MEDS ORDERED: 0.9 % Sodium Chloride 250 ML ONE (10:48)
--- NOTE | 2017-07-17 10:58 | Electrocardiograph Report ---
[place] [id number] Test Date: 2017-07-15 Pat Name: Jenna Hopson Department: 103 Room: [facility] Gender: F Interpretive Program Coordinator: ROLA : 1940 Requested By: Mandy Vicente Order Number: [id number] Reading MD: Ijeoma Ortega Measurements Intervals [place] Rate: 74 P: 70 MS: 164 QRS: -34 QRSD: 127 T: 85 QT: 436 QTc: 463 Interpretive Statements SINUS RHYTHM MARKED LEFT AXIS DEVIATION [QRS AXIS < -30] LEFT BUNDLE BRANCH BLOCK ARTIFACT Electronically Signed On 07-17-2017 10:56:22 EDT by Ijeoma Ortega
[2017-07-17] MEDS: Ketorolac 30 MG/ML VIAL IVP PRN (11:27)
[2017-07-17] MEDS: *HR* Morphine 2 MG/ML SYRINGE IVP PRN (16:48)
[2017-07-17] MEDS: FLUoxetine 20 MG CAPSULE PO SCH (17:46)
[2017-07-17] MEDS: Gabapentin 300 MG CAPSULE PO SCH (20:27)
[2017-07-18] MEDS: *HR* OxyCODONE/APAP 7.5/325 TABLET PO PRN ×4 (02:32→17:20)
[2017-07-18] MEDS: *HR* Heparin 5,000 UNIT/ML VIAL SQ SCH ×2 (06:10→17:16)
[2017-07-18] MEDS: cephALEXin 500 MG CAPSULE PO SCH ×3 (06:45→20:38)
[2017-07-18 06:50] LABS: Hematocrit 25.3 % (35.3-44.9); Hemoglobin 7.8 g/dL (11.5-15.4)
[2017-07-18] MEDS: Primidone 50 MG TABLET PO SCH ×2 (08:11→17:15)
[2017-07-18] MEDS: Gabapentin 100 MG CAPSULE PO SCH (08:11)
--- NOTE | 2017-07-18 11:04 | Internal Med Progress Note ---
Date of Encounter: 07/18/17 Time of Encounter: 09:55 - Assessment and plan (1) Humerus fracture Current Visit: Yes Status: Acute Assessment and plan: Status post open reduction and internal fixation. Continue supportive care with pain control. Awaiting placement to skilled rehabilitation. Moderate risk for complications. Qualifiers: Encounter type: initial encounter Humerus Location: shaft Fracture type: closed Fracture morphology: spiral Fracture alignment: displaced Laterality: right Qualified Code(s): S42.341A - Displaced spiral fracture of shaft of humerus, right arm, initial encounter for closed fracture (2) Diastolic heart failure of unknown etiology Current Visit: Yes Status: Chronic Assessment and plan: Not in acute exacerbation. (3) Essential tremor Current Visit: Yes Status: Chronic Assessment and plan: Continue primidone (4) Irritable bowel syndrome (IBS) Current Visit: Yes Status: Chronic Assessment and plan: Patient takes Imodium before meals. We will continue this medication. Qualifiers: Irritable bowel syndrome type: with diarrhea Qualified Code(s): K58.0 - Irritable bowel syndrome with diarrhea (5) Left bundle branch block (LBBB) on electrocardiogram Current Visit: No Status: Chronic (6) Osteoporosis Current Visit: Yes Status: Chronic Assessment and plan: Follow-up outpatient with PCP and orthopedics. Qualifiers: Osteoporosis type: unspecified Presence of current pathological fracture: with current pathological fracture Encounter type: sequela Qualified Code(s) : M80.00XS - Age-related osteoporosis with current pathological fracture, unspecified site, sequela (7) Restless leg syndrome Current Visit: No Status: Chronic Assessment and plan: Continue Mirapex (8) Anemia Current Visit: Yes Status: Acute Assessment and plan: Status post 1 unit packed blood cell transfusion. Blood counts have stabilized. We will continue to monitor hemoglobin levels. Qualifiers: Anemia type: other cause Other causes of anemia: other cause, not classified Qualified Code(s): D64.89 - Other specified anemias (9) Urinary tract infection Current Visit: Yes Status: Acute Assessment and plan: Patient's urine culture is growing staph aureus sensitive to oxacillin. She has been started on cephalexin. We will continue this medication. Qualifiers: Urinary tract infection type: acute cystitis Hematuria presence: without hematuria Qualified Code(s): N30.00 - Acute cystitis without hematuria - Subjective Interval history: Patient is awake and alert. Pain in her right upper extremity is well controlled. No other complaints at this time. She is concerned about her frequent falls. She says this has been going on for about one year now. She does not have any dizziness or lightheadedness prior to these episodes but suggests certainly falls down. She has been on vitamin B12 supplements previously. She is concerned about having low vitamin B12 levels at this time. - Constitutional Vitals: Temp Pulse Resp BP Pulse Ox 98.8 F 79 18 109/56 96 07/18/17 07:28 07/18/17 07:28 07/18/17 07:28 07/18/17 07:28 07/18/17 07:28 General appearance: Present: cooperative, A&O X 3, answers questions appropriately - Neck Neck exam general surgery: Present: supple, trachea midline. Absent: lymphadenopathy - Respiratory Respiratory exam: Present: CTAB. Absent: accessory muscle use, rales, rhonchi, wheezes - Cardiovascular Cardiovascular exam: Present: RRR, +S1, +S2. Absent: diastolic murmur, gallop, rubs, systolic murmur - Extremities Exam Extremities exam: Present: tenderness, warm, radial pulses palpable and symmetrical. Absent: calf tenderness, cyanotic, pedal edema Additional comments: Right upper extremity in sling Internal Medicine: Result - Labs CBC & Chem 7: 07/18/17 06:05 07/17/17 02:32 Labs: Short CBC 07/18/17 Range/Units 06:05 Hgb 7.8 L (11.5-15.4) g/dL Hct 25.3 L (35.3-44.9) % - ABG Interpretation ABG results: PT/INR, D-dimer PT 12.3 Seconds (9.4-12.1) H 07/16/17 04:58 - VTE Documentation of Mechanical Device: Intermittent pneumatic compression device Consult Discharge Plan - Plan Referrals: Macrina Oneill PAC [Physician Full Stack Developer] - 07/22/17 1:45 pm King Winter MD [Primary Care Provider] -
[2017-07-18] MEDS: FLUoxetine 20 MG CAPSULE PO SCH (17:15)
[2017-07-18] MEDS: *HR* Morphine 2 MG/ML SYRINGE IVP PRN (20:38)
[2017-07-18] MEDS: Gabapentin 300 MG CAPSULE PO SCH (20:39)
[2017-07-19] MEDS: *HR* OxyCODONE/APAP 7.5/325 TABLET PO PRN ×4 (02:21→16:58)
[2017-07-19 04:09] LABS: Basophils % 0.4 %; Eosinophils # 0.1 K/mcL (0.0-0.6); Eosinophils % 2.3 %; Hematocrit 24.3 % (35.3-44.9); Hemoglobin 7.3 g/dL (11.5-15.4); Immature Granulocytes % 0.4 % (0-4); Lymphocytes # 1.4 K/mcL (0.6-4.6); Lymphocytes % 25.8 %; Mean Corpuscular Hemoglobin 24.7 pg (28.0-33.3); Mean Corpuscular Volume 82.4 fL (83.0-100.0); Mean Platelet Volume 9.9 fL (9.4-12.4); Monocytes # 0.5 K/mcL (0.0-1.3); Monocytes % 10.1 %; Neutrophils # 3.2 K/mcL (1.6-8.9); Platelet Count 170 K/mcL (140-400); Red Blood Count 2.95 M/mcL (3.82-4.97); Red Cell Distribution Width 17.4 % (11.5-14.5)
[2017-07-19 04:31] LABS: BUN/Creatinine Ratio 24 (6-26); Blood Urea Nitrogen 20 mg/dL (7-20); Calcium 7.8 mg/dL (8.6-10.8); Carbon Dioxide 23 mEq/L (19-29); Chloride 105 mEq/L (98-109); Glucose 244 mg/dL (70-99); Osmolality,Calculated 295 (280-300); Potassium 3.9 mEq/L (3.5-4.5); Sodium 137 mEq/L (136-145); eGFR For African Americans > 60 (> 60); eGFR For Non-African Americans > 60 (> 60)
[2017-07-19] MEDS ORDERED: 0.9 % Sodium Chloride 250 ML ONE (08:25)
[2017-07-19] MEDS: Primidone 50 MG TABLET PO SCH (08:47)
[2017-07-19] MEDS: cephALEXin 500 MG CAPSULE PO SCH ×2 (08:47→15:37)
[2017-07-19] MEDS: Gabapentin 100 MG CAPSULE PO SCH (08:47)
[2017-07-19 08:57] LABS: % Iron Saturation 8 % (15-50); Iron 25 mcg/dL (50-170); Transferrin 224 mg/dL (180-382)
[2017-07-19] MEDS: Ketorolac 30 MG/ML VIAL IVP PRN ×2 (09:09→15:37)
[2017-07-19 09:17] LABS: Ferritin 20 ng/ml (5-204)
--- NOTE | 2017-07-19 09:41 | Event Note ---
Date of Encounter: 07/19/17 Time of Encounter: 09:40 Appts made for POW#2 with Yina - on floor
--- NOTE | 2017-07-19 09:46 | Physician Discharge Referral ---
ExtendedCare Referral Info Transfer To: F Provider in Charge after Transfer: PCP Institutional Level of Care: Skilled - Diagnosis (1) History of open reduction and internal fixation (ORIF) procedure Priority: Primary Status: Acute (2) Closed right humeral fracture Priority: Primary Status: Acute Expected Duration of Placement: < 30 days Prognosis: Good Aware of Diagnosis: Patient Aware of Prognosis: Patient - Transfer Medications Home Medications: ALPRAZolam [Xanax 0.5 MG Tablet] 0.5 mg PO BID 07/15/17 [History] FLUoxetine HCl [Prozac] 20 mg PO QPM 07/15/17 [History] FLUoxetine HCl [Prozac] 40 mg PO QAM 07/15/17 [History] Gabapentin [Neurontin] 100 mg PO QAM 07/15/17 [History] Gabapentin [Neurontin] 300 mg PO HS 07/15/17 [History] Loperamide HCl [Imodium A-D] 6 mg PO TIDWM 07/15/17 [History] Melatonin 20 mg PO HS 07/15/17 [History] Primidone [Mysoline] 50 mg PO QPM 07/15/17 [History] Primidone [Mysoline] 100 mg PO QAM 07/15/17 [History] rOPINIRole [Requip] 3 mg PO QAM 07/15/17 [History] rOPINIRole [Requip] 6 mg PO HS 07/15/17 [History] Allergies/Adverse Reactions: 3 Allergy/AdvReac Type Severity Reaction Status Date / Time No Known Allergies Allergy Verified 07/15/17 18:17 - Respiratory Orders None Smoking Cessation: Smoking cessation has been advised. For more information, call the [place] Tobacco Quit Line at 4-714-HNYJ-NOW. - Mobility Orders Chair, Ambulate - Rehabiliation Orders Rehab Potential: Good Rehab Orders: ROM Exercises (PROM, pendulum swings only to RUE. No active ROM. In sling. NWB to RUE*), Evaluation for Physical Therapy, Evaluation for Occupational Therapy - Diet Orders Regular CERTIFICATION: I certify that the transfer of the above named patient to an Extended Care Facility is necessary for the continuing treatment of the diagnosis listed. The above information is true and accurate reflection of patient's current condition. Confidential - Redisclosure prohibited without a patient's written consent.
[2017-07-19] MEDS ORDERED: Folic Acid 1 MG TABLET PO SCH (11:00)
--- NOTE | 2017-07-19 11:06 | Discharge Summary ---
Date of Encounter: 07/19/17 Time of Encounter: 10:54 - Discharge Diagnosis (1) Humerus fracture Priority: Primary Status: Acute Qualifiers: Encounter type: initial encounter Humerus Location: shaft Fracture type: closed Fracture morphology: spiral Fracture alignment: displaced Laterality: right Qualified Code(s): S42.341A - Displaced spiral fracture of shaft of humerus, right arm, initial encounter for closed fracture (2) Diastolic heart failure of unknown etiology Priority: Secondary Status: Chronic (3) Essential tremor Priority: Secondary Status: Chronic (4) Irritable bowel syndrome (IBS) Priority: Secondary Status: Chronic Qualifiers: Irritable bowel syndrome type: with diarrhea Qualified Code(s): K58.0 - Irritable bowel syndrome with diarrhea (5) Left bundle branch block (LBBB) on electrocardiogram Priority: Secondary Status: Chronic (6) Osteoporosis Priority: Secondary Status: Chronic Qualifiers: Osteoporosis type: unspecified Presence of current pathological fracture: with current pathological fracture Encounter type: sequela Qualified Code(s) : M80.00XS - Age-related osteoporosis with current pathological fracture, unspecified site, sequela (7) Restless leg syndrome Priority: Secondary Status: Chronic (8) Anemia Priority: Secondary Status: Acute Comments: Iron and folic acid deficiency Qualifiers: Anemia type: other cause Other causes of anemia: other cause, not classified Qualified Code(s): D64.89 - Other specified anemias (9) Urinary tract infection Priority: Secondary Status: Acute Qualifiers: Urinary tract infection type: acute cystitis Hematuria presence: without hematuria Qualified Code(s): N30.00 - Acute cystitis without hematuria - Discharge Medications Prescriptions: OxyCODONE/APAP 7.5/325 [Percocet 7.5/325 MG] 1 each PO Q4HR PRN #20 tablet PRN Reason: Pain ALPRAZolam [Xanax 0.5 MG Tablet] 0.5 mg PO BID #20 tablet Calcium Carbonate/Vitamin D3 [Calcium 500 + Vit D Caplet] 1 each PO DAILY #30 tablet cephALEXin [Keflex] 500 mg PO TID #14 capsule Ferrous Sulfate 325 mg PO BIDWM #60 tablet Folic Acid 1 mg PO DAILY #30 tablet Gabapentin [Neurontin] 100 mg PO QAM #30 capsule Gabapentin [Neurontin] 300 mg PO HS #30 capsule Vitamin B Complex/Vit C/Vit E [Stresstab] 1 each PO DAILY #30 tablet Home Medications: FLUoxetine HCl [Prozac] 20 mg PO QPM 07/15/17 [History] FLUoxetine HCl [Prozac] 40 mg PO QAM 07/15/17 [History] Loperamide HCl [Imodium A-D] 6 mg PO TIDWM 07/15/17 [History] Melatonin 20 mg PO HS 07/15/17 [History] Primidone [Mysoline] 50 mg PO QPM 07/15/17 [History] Primidone [Mysoline] 100 mg PO QAM 07/15/17 [History] rOPINIRole [Requip] 3 mg PO QAM 07/15/17 [History] rOPINIRole [Requip] 6 mg PO HS 07/15/17 [History] ALPRAZolam [Xanax 0.5 MG Tablet] 0.5 mg PO BID #20 tablet 07/19/17 [Rx] Calcium Carbonate/Vitamin D3 [Calcium 500 + Vit D Caplet] 1 each PO DAILY #30 tablet 07/19/17 [Rx] Ferrous Sulfate 325 mg PO BIDWM #60 tablet 07/19/17 [Rx] Folic Acid 1 mg PO DAILY #30 tablet 07/19/17 [Rx] Gabapentin [Neurontin] 100 mg PO QAM #30 capsule 07/19/17 [Rx] Gabapentin [Neurontin] 300 mg PO HS #30 capsule 07/19/17 [Rx] OxyCODONE/APAP 7.5/325 [Percocet 7.5/325 MG] 1 each PO Q4HR PRN #20 tablet 07/19 [Rx] Vitamin B Complex/Vit C/Vit E [Stresstab] 1 each PO DAILY #30 tablet 07/19/17 [ Rx] cephALEXin [Keflex] 500 mg PO TID #14 capsule 07/19/17 [Rx] Allergies/Adverse Reactions: 3 Allergy/AdvReac Type Severity Reaction Status Date / Time No Known Allergies Allergy Verified 07/15/17 18:17 Date of admission: 07/16/17 01:32 Primary care physician: King Winter MD Consults: 07/17/17 09:43 Consult to [employer] [CONS] Routine Reason for SW Consult: Discharge planning Discharging clinician: Mandy Vicente Anticipated date of discharge: 07/19/17 - Patient Status Disposition: Transfer SNF Condition: Good Functional capacity at discharge: independent ambulation Overall status at discharge: patient is progressing back to baseline - Discharge Instructions Instructions: Arm Fracture in Adults (DC), Calcium and Osteoporosis (DC), Anemia (GEN) Follow Up With: Macrina Oneill PAC [Physician Avionics Systems Integration Specialist] - 07/22/17 1:45 pm King Winter MD [Primary Care Provider] - Additional Instructions: WEAR SLING TO RUE. - Diet and Activity Activity: increase activity as tolerated Diet: low fat, low cholesterol, low salt diet Hospital course: Ms. Hopson is a 77 year old female patient who was admitted here with fracture involving the right humerus. She was evaluated by orthopedics and recommended surgery. She underwent open reduction and internal fixation of the right humerus on 07/16/2017. Since then she has been recovering well. She did have a decrease in her hemoglobin levels post surgery and received 2 units of packed red blood cells during his stay here. She has been evaluated by physical therapy and recommended placement to skilled rehabilitation. She is clinically stable for discharged there today. Patient does have low iron and folic acid levels and would benefit from oral supplementation. She also describes recurrent episodes of falls for which she needs follow-up with her primary care provider. She will also benefit from physical therapy at skilled rehabilitation. - Time Spent with Patient Total time spent providing and/or coordinating discharge services: Greater than 30 minutes (45 min) - Constitutional Vitals: Temp Pulse Resp BP Pulse Ox 98.2 F 74 16 113/49 95 07/19/17 08:55 07/19/17 08:55 07/19/17 08:55 07/19/17 08:55 07/19/17 08:55 General appearance: Present: cooperative, A&O X 3, answers questions appropriately - Neck Neck exam general surgery: Present: supple, trachea midline. Absent: lymphadenopathy - Respiratory Respiratory exam: Present: CTAB. Absent: accessory muscle use, rales, rhonchi, wheezes - Cardiovascular Cardiovascular exam: Present: RRR, +S1, +S2. Absent: diastolic murmur, gallop, rubs, systolic murmur - GI/Abdominal GI/Abdominal exam: Present: normal bowel sounds, soft, no peritoneal signs. Absent: distended, tenderness - Extremities Exam Extremities exam: Present: tenderness (Right upper extremity in sling), warm, radial pulses palpable and symmetrical. Absent: calf tenderness, cyanotic, pedal edema - Skin Skin exam: Present: dry, intact - VTE Documentation of Mechanical Device: Intermittent pneumatic compression device
[2017-07-19 11:37] VITALS: BP 135/78
[2017-07-19 13:19] LABS: Hematocrit 32.5 % (35.3-44.9)
[2017-07-19 13:23] LABS: Hemoglobin 9.5 g/dL (11.5-15.4)
[2017-07-20] MEDS ORDERED: Vitamin B Complex/Vit C/Vit E 1 EACH TABLET PO SCH (09:00)
== END 2017-07-19 17:55 | DRG 493 ==
LOC: EMEROO 18:15 → 3NENU 18:15
PROVIDERS: ADMIT Internal Medicine; ATTEND Internal Medicine